=== PATIENT | female | born 1960 | race Caucasian/White ===

== ENCOUNTER 2018-08-01 10:57 | Inpatient (IN) | payer OTHER ==
[2018-08-01 11:34] VITALS: BMI 21.4
--- NOTE | 2018-08-01 15:12 | HP ---
COWS - Scale Resting Pulse: 1= [place] 81-100 Sweatin= Chills/Flushing Restless Observation: 3= Extraneous Movement Pupil Size: 1= Pupils >than Normal Bone or Joint Aches: 2= Severe Diffuse Aches Runny Nose/ Eye Tearin= Runny Nose/Eyes GI Upset > 30mins: 2= Nausea/Diarrhea Tremor Observation: 2= Slight Tremor Visible Yawning Observation: 2= >3x During Session Anxiety or Irritability: 2=Irritable/Anxious Goose Flesh Skin: 0=Smooth Skin COWS Score: 18 CIWA Score Nausea/Vomitin Muscle Tremors: 2 Anxiety: 2 Agitation: 2 Paroxysmal Sweats: 1-Minimal Palms Moist Orientation: 0-Oriented Tacttile Disturbances: 1-Very Mild Itch/Numbness Auditory Disturbances: 1-Very Mild Visual Disturbances: 0-None Headache: 2-Mild CIWA-Ar Total Score: 13 - Admission Criteria OASAS Guidelines: Admission for Medically Managed Detox: Requires at least one of the followin. CIWA greater than 12 2. Seizures within the past 24 hours 3. Delirium tremens within the past 24 hours 4. Hallucinations within the past 24 hours 5. Acute intervention needed for co occurring medical disorder 6. Acute intervention needed for co occurring psychiatric disorder 7. Severe withdrawal that cannot be handled at a lower level of care (continued vomiting, continued diarrhea, abnormal vital signs) requiring intravenous medication and/or fluids 8. Patient presents the following: CIWA greater than 12 Admission Criteria Met: Admission criteria met Admission ROS S - [facility] Chief Complaint: i need help to stop using heroin,alcohol,and cocaine Allergies/Adverse Reactions: Allergies Allergy/AdvReac Type Severity Reaction Status Date / Time No Known Allergies Allergy Verified 08/01/18 17:18 History of Present Illness: this 58 years old male with heroin,alcohol, and cocaine dependence,seeking detox ,withdrawal symptom,last detox in [facility] in 01/12, rehab in [facility] in 01/12 multiple admissions but keep relapsing hypertension hiv since 1997weight loss longest period of sobriety 5 years insomnia plan of rehab Exam Limitations: No Limitations - Ebola screening Have you traveled outside of the country in the last 21 days: No (N) Have you had contact with anyone from an Ebola affected area: No Have you been sick,other than usual withdrawal symptoms: No Do you have a fever: No - Review of Systems Constitutional: Chills, Diaphoresis, Loss of Appetite, Malaise, Night Sweats, Changes in sleep, Weakness, Unintentional Wgt. Loss EENT: reports: Tearing, Nose Congestion Respiratory: reports: Other (asthma) Cardiac: reports: No Symptoms Reported GI: reports: Diarrhea, Nausea, Vomiting, Abdominal cramping : reports: No Symptoms Reported Integumentary: reports: Dryness Neuro: reports: Headache, Tremors Endocrine: reports: No Symptoms Reported Hematology: reports: No Symptoms Reported, Other (hiv) Psychiatric: reports: No Sypmtoms Reported, Judgement Intact, Mood/Affect Appropiate, Orientated x3, other (insomnia) Other Systems: Reviewed and Negative Patient History - Patient Medical History Hx Anemia: No Hx Asthma: Yes (on albetrol inhaler,advair) Hx Chronic Obstructive Pulmonary Disease (COPD): No Hx Cancer: No Hx Cardiac Disorders: No Hx Congestive Heart Failure: No Hx Hypertension: Yes (on med) Hx Hypercholesterolemia: No Hx Pacemaker: No HX Cerebrovascular Accident: No Hx Seizures: No Hx Dementia: No Hx Diabetes: No Hx Gastrointestinal Disorders: No Hx Liver Disease: No Hx Genitourinary Disorders: No Hx Sexually Transmitted Disorders: No Hx Renal Disease (ESRD): No Hx Thyroid Disease: No Hx Human Immunodeficiency Virus (HIV): Yes (since 1997) Hx Hepatitis C: No Hx Depression: No Hx Suicide Attempt: No Hx Bipolar Disorder: No Hx Schizophrenia: No Other Medical History: insomnia,no suicidal,no homicidal - Patient Surgical History Hx Section: Yes (x2 last 1994) - PPD History Previous Implant?: Yes Documented Results: Negative w/o proof Implanted On Prior R Admission?: No PPD to be Administered?: Yes - Reproductive History Patient is a Female of Child Bearing Age (11 -55 yrs old): No Patient : No - Smoking Cessation Smoking history: Current every day smoker Have you smoked in the past 12 months: Yes Aproximately how many cigarettes per day: 10 Cigars Per Day: 0 Hx Chewing Tobacco Use: No Initiated information on smoking cessation: Yes 'Breaking Loose' booklet given: 08/01/18 - Substance & Tx. History Hx Alcohol Use: Yes Hx Substance Use: Yes Substance Use Type: Alcohol, Cocaine, Heroin Hx Substance Use Treatment: Yes ([facility] 01[facility],then [facility]hab [facility] 01/12) - Substances Abused Heroin Route: Injection Frequency: Daily Amount used: 8 bags Age of first use: 15 Date of Last Use: 08/01/18 Cocaine Route: Injection Frequency: Daily Amount used: 20$ Age of first use: 16 Date of Last Use: 08/01/18 alcohol Route: Oral Frequency: Daily Amount used: 10 of 24 ozs of beer Age of first use: 15 Date of Last Use: 07/31/18 Family Disease History - Family Disease History Family Disease History: [place]: Father () Admission Physical Exam [facility] - Vital Signs Vital Signs: Vital Signs - 24 hr 08/01/18 11:32 Temperature 97.0 F L Pulse Rate 91 H Respiratory 18 Rate Blood Pressure 163/87 - Physical General Appearance: Yes: Moderate Distress, Tremorous, Irritable, Sweating, Anxious HEENTM: Yes: Normal ENT Inspection, DAVID, Pharynx Normal, Other (no teeth no denture) Respiratory: Yes: Lungs Clear, Normal Breath Sounds, No Respiratory Distress Neck: Yes: Within Normal Limits, Supple, Trachea in good position Breast: Yes: Breast Exam Deferred Cardiology: Yes: Within Normal Limits, Regular Rhythm, Regular Rate, S1, S2 Abdominal: Yes: Within Normal Limits, Normal Bowel Sounds, Non Tender, Flat Genitourinary: Yes: Within Normal Limits Musculoskeletal: Yes: Back pain, Joint Stiffness, Muscle Pain Extremities: Yes: Within Normal Limits, Tremors Neurological: Yes: senior merchandiser II-XII NML intact, Fully Oriented, Alert, Motor Strength 5/5 Integumentary: Yes: Dry Lymphatic: Yes: Within Normal Limits - Diagnostic (1) Opioid dependence with withdrawal Current Visit: Yes Status: Acute (2) Alcohol dependence with uncomplicated withdrawal Current Visit: Yes Status: Acute (3) Cocaine dependence Current Visit: Yes Status: Acute (4) Essential hypertension Current Visit: Yes Status: Acute (5) Asthma Current Visit: Yes Status: Acute (6) Weight loss Current Visit: Yes Status: Acute (7) Dehydration Current Visit: Yes Status: Acute (8) Nicotine dependence Current Visit: Yes Status: Acute Cleared for Admission S - Detox or Rehab S Level of Care: Medically Managed Detox Regimen/Protocol: Methadone/Librium S Breath Alcohol Content Breath Alcohol Content: 0 Urine Pregancy Test - Result Urine Test Results: Negative- NO Line Present Urine Drug Screen - Results Drug Screen Negative: No Urine Drug Screen Results: NABIL-Cocaine, OPI-Opiates, FEN-Fentanyl
[2018-08-01] MEDS ORDERED: MAGNESIUM HYDROX 2400MG/30ML ORAL SUSPENSION 30 ML CUP PO PRN (15:33)
[2018-08-01] MEDS ORDERED: MAGNESIUM CITRATE 300 ML BOTTLE PO PRN (15:33)
[2018-08-01] MEDS ORDERED: chlordiazePOXIDE HCL 25 MG CAPSULE PO PRN (15:33)
[2018-08-01] MEDS ORDERED: P-EPHED 60MG/TRIPROLIDI 2.5MG TABLET PO PRN (15:33)
[2018-08-01] MEDS ORDERED: LOPERAMIDE HCL 2 MG CAPSULE PO PRN (15:33)
[2018-08-01] MEDS ORDERED: guaiFENesin/D-METHORPHAN HB 10 ML UNIT-DOSE CUPS PO PRN (15:33)
[2018-08-01] MEDS ORDERED: MENTHOL/PHENOL 1 EACH UD MM PRN (15:33)
[2018-08-01] MEDS ORDERED: MAG HYDROX/AL HYDROX/SIMETH 30 ML UNIT-DOSE CUP PO PRN (15:33)
[2018-08-01] MEDS ORDERED: METHADONE HCL 10 MG TABLET (FOR DETOX USE ONLY) PO ONE ×2 (15:33→23:00)
[2018-08-01] MEDS ORDERED: TRIMETHOBENZAMIDE HCL 200MG/2ML INJ IM PRN (15:39)
[2018-08-01] MEDS ORDERED: ALBUTEROL SO4 8 GM HFA INHALER IH PRN (17:58)
[2018-08-01] MEDS: chlordiazePOXIDE HCL 25 MG CAPSULE PO SCH ×2 (18:07→22:30)
[2018-08-01] MEDS: NICOTINE 21 MG/24 HOURS TOPICAL PATCH TD SCH (18:15)
[2018-08-01] MEDS: BUDESONIDE/FORMETEROL FUMARATE 160/4.5 mcg INHALER IH SCH (22:29)
[2018-08-01] MEDS: THIAMINE HCL 100 MG TABLET (FP) PO SCH (22:29)
[2018-08-01] MEDS: cloNIDine HCL 0.1 MG TABLET PO SCH (22:30)
[2018-08-01] MEDS: MELATONIN 5 MG TABLETS PO PRN (22:30)
[2018-08-02] MEDS: chlordiazePOXIDE HCL 25 MG CAPSULE PO SCH ×4 (05:42→22:01)
[2018-08-02] MEDS ORDERED: METHADONE HCL 10 MG TABLET (FOR DETOX USE ONLY) PO SCH (10:00)
[2018-08-02] MEDS: BUDESONIDE/FORMETEROL FUMARATE 160/4.5 mcg INHALER IH SCH ×2 (10:55→22:01)
[2018-08-02] MEDS: PRENATAL VITAMINS W/ FOLIC ACID TABLET (FP) PO SCH (10:56)
[2018-08-02] MEDS: NICOTINE 21 MG/24 HOURS TOPICAL PATCH TD SCH (10:58)
[2018-08-02] MEDS: cloNIDine HCL 0.1 MG TABLET PO SCH ×2 (10:58→22:02)
[2018-08-02 13:06] LABS: ALBUMIN 2.6 g/dl (3.4-5.0); ALK PHOS 129 U/L (45-117); ANION GAP 7 MMOL/L (8-16); BILIRUBIN,TOTAL 0.4 mg/dL (0.2-1); BLOOD UREA NITROGEN 14 mg/dL (7-18); CHLORIDE 107 mmol/L (98-107); CO2 26 mmol/L (21-32); CREATININE 0.9 mg/dL (0.55-1.3); GLUCOSE,RANDOM 133 mg/dL (74-106); POTASSIUM 3.9 mmol/L (3.5-5.1); SGOT/AST 39 U/L (15-37); SGPT/ALT 32 U/L (13-61); SODIUM 140 mmol/L (136-145); TOT PROT 7.2 g/dl (6.4-8.2)
[2018-08-02 13:08] LABS: HEMATOCRIT 37.1 % (32.4-45.2); HEMOGLOBIN 12.8 GM/dL (10.7-15.3); MCH 30.3 pg (25.7-33.7); MCHC 34.6 g/dl (32.0-36.0); MEAN CELL VOLUME 87.4 fl (80-96); PLATELET COUNT 216 K/MM3 (134-434); RBC 4.25 M/mm3 (3.60-5.2); WHITE BLOOD COUNT 4.2 K/mm3 (4.0-10.0)
--- NOTE | 2018-08-02 16:53 | PN ---
[facility] CIWA - CIWA Score Nausea/Vomitin Muscle Tremors: 4-Moderate,w/Arms Extend Anxiety: 4-Mod. Anxious/Guarded Agitation: 4-Moderately Restless Paroxysmal Sweats: 3 Orientation: 0-Oriented Tacttile Disturbances: 0-None Auditory Disturbances: 0-None Visual Disturbances: 0-None Headache: 0-None Present CIWA-Ar Total Score: 17 S COWS - Scale Resting Pulse: 1= [place] 81-100 Sweatin= Chills/Flushing Restless Observation: 3= Extraneous Movement Pupil Size: 1= Pupils >than Normal Bone or Joint Aches: 2= Severe Diffuse Aches Runny Nose/ Eye Tearin= Runny Nose/Eyes GI Upset > 30mins: 3= Vomiting/Diarrhea Tremor Observation of Outstretched Hands: 2= Slight Tremor Visible Yawning Observation: 1= 1-2x During Session Anxiety or Irritability: 2=Irritable/Anxious Goose Flesh Skin: 0=Smooth Skin COWS Score: 18 [facility] Progress Note (SOAP) Subjective: Back pain, sweating, tremor, chills, c/o intermittent numbness to top of feet and to toes Objective: 08/02/18 16:49 Last Vital Signs Temp Pulse Resp BP Pulse Ox 96.1 F L 87 16 144/73 08/02/18 15:23 08/02/18 15:23 08/02/18 15:23 08/02/18 15:23 Elevated b/p noted: denies h/o htn Laboratory Tests 08/02/18 08/02/18 08/02/18 07:40 07:40 07:40 WBC 4.2 RBC 4.25 Hgb 12.8 Hct 37.1 MCV 87.4 MCH 30.3 MCHC 34.6 RDW 15.0 Plt Count 216 MPV 9.0 Sodium 140 Potassium 3.9 Chloride 107 Carbon Dioxide 26 Anion Gap 7 L BUN 14 Creatinine 0.9 Creat Clearance w eGFR > 60 Random Glucose 133 H Calcium 8.0 L Total Bilirubin 0.4 AST 39 H ALT 32 Alkaline Phosphatase 129 H Total Protein 7.2 Albumin 2.6 L RPR Titer Nonreactive Labs reviewed: glucose 133 EKG shows prolonged QTc, ordered for repeat in AM Assessment: 08/02/18 16:51 Withdrawal symptoms Noted with elevated blood pressure, hyperglycemia and prolonged QTc on EKG Plan: Continue detox Encouraged PO water intake Vistaril prn for anxiety Hyperglycemia: repeat fasting glucose in AM Prolonged QTc on EKG: asymptomatic, repeat EKG in AM Elevated blood pressure: clonidine prn
--- NOTE | 2018-08-02 17:12 | EKG ---
Test Reason : Blood Pressure : / mmHG Vent. Rate : 085 BPM Atrial Rate : 085 BPM P-R Int : 130 ms QRS Dur : 096 ms QT Int : 394 ms P-R-T Axes : 043 069 088 degrees QTc Int : 468 ms SINUS RHYTHM WITH PREMATURE ATRIAL COMPLEXES WITH ABERRANT CONDUCTION VOLTAGE CRITERIA FOR LEFT VENTRICULAR HYPERTROPHY ABNORMAL ECG NO PREVIOUS ECGS AVAILABLE Confirmed by MD CATINA, TOLU ([id number]) on 08/02/2018 5:12:25 PM Referred By: Confirmed By:TOLU DOMINIQUE MD
[2018-08-02 18:05] LABS: SICKLE CELL SCREEN NEGATIVE (NEGATIVE)
[2018-08-02] MEDS: THIAMINE HCL 100 MG TABLET (FP) PO SCH (22:01)
[2018-08-02] MEDS: IBUPROFEN 400 MG TABLET (FP) PO PRN (23:05)
[2018-08-03] MEDS: hydrOXYzine PAMOATE 25 MG CAPSULE (FP) PO PRN (02:14)
[2018-08-03] MEDS: chlordiazePOXIDE HCL 25 MG CAPSULE PO SCH ×2 (06:07→10:07)
--- NOTE | 2018-08-03 09:45 | EKG ---
Test Reason : Blood Pressure : / mmHG Vent. Rate : 072 BPM Atrial Rate : 072 BPM P-R Int : 136 ms QRS Dur : 098 ms QT Int : 452 ms P-R-T Axes : 033 055 078 degrees QTc Int : 494 ms NORMAL SINUS RHYTHM VOLTAGE CRITERIA FOR LEFT VENTRICULAR HYPERTROPHY NONSPECIFIC T WAVE ABNORMALITY PROLONGED QT ABNORMAL ECG WHEN COMPARED WITH ECG OF 02-AUG-2018 07:17, T WAVE VARIATION Confirmed by IRENE DEL RIO, STARR ([id number]) on 08/03/2018 9:44:56 AM Referred By: Confirmed By:STARR BONILLA MD
[2018-08-03] MEDS: PRENATAL VITAMINS W/ FOLIC ACID TABLET (FP) PO SCH (10:07)
[2018-08-03] MEDS: cloNIDine HCL 0.1 MG TABLET PO SCH ×2 (10:07→22:19)
[2018-08-03] MEDS: METHADONE HCL 5 MG TABLET (FOR DETOX USE ONLY) PO SCH (10:08)
[2018-08-03] MEDS: BUDESONIDE/FORMETEROL FUMARATE 160/4.5 mcg INHALER IH SCH ×2 (10:08→22:18)
[2018-08-03] MEDS: NICOTINE 21 MG/24 HOURS TOPICAL PATCH TD SCH (10:10)
--- NOTE | 2018-08-03 11:59 | PN ---
[facility] CIWA - CIWA Score Nausea/Vomitin-Mild Nausea/No Vomiting Muscle Tremors: 3 Anxiety: 2 Agitation: 3 Paroxysmal Sweats: 1-Minimal Palms Moist Orientation: 1-Uncertain about Date Tacttile Disturbances: 0-None Auditory Disturbances: 1-Very Mild Visual Disturbances: 0-None Headache: 2-Mild CIWA-Ar Total Score: 14 [facility] COWS - Scale Resting Pulse: 0= IN 80 or Below Sweatin= Chills/Flushing Restless Observation: 0= Sits Still Pupil Size: 0= Normal to Room Light Bone or Joint Aches: 2= Severe Diffuse Aches Runny Nose/ Eye Tearin= Nasal Congestion GI Upset > 30mins: 2= Nausea/Diarrhea Tremor Observation of Outstretched Hands: 2= Slight Tremor Visible Yawning Observation: 2= >3x During Session Anxiety or Irritability: 2=Irritable/Anxious Goose Flesh Skin: 0=Smooth Skin COWS Score: 12 S Progress Note (SOAP) Subjective: body aches tremor sweat joints pain restlessness anxiety Objective: 08/03/18 11:57 Vital Signs Temperature 97.1 F L 08/03/18 09:26 Pulse Rate 77 08/03/18 09:26 Respiratory Rate 18 08/03/18 09:26 Blood Pressure 137/72 08/03/18 09:26 O2 Sat by Pulse Oximetry (%) Laboratory Last Values WBC 4.2 K/mm3 (4.0-10.0) 08/02/18 07:40 RBC 4.25 M/mm3 (3.60-5.2) 08/02/18 07:40 Hgb 12.8 GM/dL (10.7-15.3) 08/02/18 07:40 Hct 37.1 % (32.4-45.2) 08/02/18 07:40 MCV 87.4 fl (80-96) 08/02/18 07:40 MCH 30.3 pg (25.7-33.7) 08/02/18 07:40 MCHC 34.6 g/dl (32.0-36.0) 08/02/18 07:40 RDW 15.0 % (11.6-15.6) 08/02/18 07:40 Plt Count 216 K/MM3 (134-434) 08/02/18 07:40 MPV 9.0 fl (7.5-11.1) 08/02/18 07:40 Sickle Cell Screen Negative (NEGATIVE) 08/02/18 07:40 Sodium 140 mmol/L (136-145) 08/02/18 07:40 Potassium 3.9 mmol/L (3.5-5.1) 08/02/18 07:40 Chloride 107 mmol/L (98-107) 08/02/18 07:40 Carbon Dioxide 26 mmol/L (21-32) 08/02/18 07:40 Anion Gap 7 MMOL/L (8-16) L 08/02/18 07:40 BUN 14 mg/dL (7-18) 08/02/18 07:40 Creatinine 0.9 mg/dL (0.55-1.3) 08/02/18 07:40 Creat Clearance w eGFR > 60 (>60) 08/02/18 07:40 Random Glucose 133 mg/dL (74-106) H 08/02/18 07:40 Calcium 8.0 mg/dL (8.5-10.1) L 08/02/18 07:40 Total Bilirubin 0.4 mg/dL (0.2-1) 08/02/18 07:40 AST 39 U/L (15-37) H 08/02/18 07:40 ALT 32 U/L (13-61) 08/02/18 07:40 Alkaline Phosphatase 129 U/L (45-117) H 08/02/18 07:40 Total Protein 7.2 g/dl (6.4-8.2) 08/02/18 07:40 Albumin 2.6 g/dl (3.4-5.0) L 08/02/18 07:40 RPR Titer Nonreactive (NONREACTIVE) 08/02/18 07:40 lab noted low ca++ Assessment: 08/03/18 11:58 withdrawal sx hypocalcemia Plan: continue detox oscal
[2018-08-03] MEDS: CALCIUM 250MG/VIT-D 125 UNITS 1 COMBO TABLET PO SCH ×2 (14:31→22:19)
[2018-08-03] MEDS: chlordiazePOXIDE 5 MG CAPSULE PO SCH ×2 (17:38→22:19)
[2018-08-03] MEDS: THIAMINE HCL 100 MG TABLET (FP) PO SCH (22:19)
[2018-08-03] MEDS: MELATONIN 5 MG TABLETS PO PRN (22:21)
[2018-08-04] MEDS: chlordiazePOXIDE 5 MG CAPSULE PO SCH ×2 (05:53→10:52)
[2018-08-04] MEDS: IBUPROFEN 400 MG TABLET (FP) PO PRN ×2 (05:55→14:50)
[2018-08-04] MEDS: BUDESONIDE/FORMETEROL FUMARATE 160/4.5 mcg INHALER IH SCH ×2 (10:49→22:19)
[2018-08-04] MEDS: CALCIUM 250MG/VIT-D 125 UNITS 1 COMBO TABLET PO SCH ×2 (10:49→22:19)
[2018-08-04] MEDS: PRENATAL VITAMINS W/ FOLIC ACID TABLET (FP) PO SCH (10:50)
[2018-08-04] MEDS: NICOTINE 21 MG/24 HOURS TOPICAL PATCH TD SCH (10:50)
[2018-08-04] MEDS: cloNIDine HCL 0.1 MG TABLET PO SCH ×2 (10:51→22:19)
[2018-08-04] MEDS: METHADONE HCL 5 MG TABLET (FOR DETOX USE ONLY) PO SCH (10:51)
--- NOTE | 2018-08-04 12:36 | PN ---
[facility] Progress Note (SOAP) Subjective: tremor sweat restlessness anxiety body aches joints pain muscle cramping Objective: 08/04/18 12:36 Vital Signs Temperature 98.1 F 08/04/18 09:23 Pulse Rate 77 08/04/18 09:23 Respiratory Rate 18 08/04/18 09:23 Blood Pressure 131/62 08/04/18 09:23 O2 Sat by Pulse Oximetry (%) Laboratory Last Values WBC 4.2 K/mm3 (4.0-10.0) 08/02/18 07:40 RBC 4.25 M/mm3 (3.60-5.2) 08/02/18 07:40 Hgb 12.8 GM/dL (10.7-15.3) 08/02/18 07:40 Hct 37.1 % (32.4-45.2) 08/02/18 07:40 MCV 87.4 fl (80-96) 08/02/18 07:40 MCH 30.3 pg (25.7-33.7) 08/02/18 07:40 MCHC 34.6 g/dl (32.0-36.0) 08/02/18 07:40 RDW 15.0 % (11.6-15.6) 08/02/18 07:40 Plt Count 216 K/MM3 (134-434) 08/02/18 07:40 MPV 9.0 fl (7.5-11.1) 08/02/18 07:40 Sickle Cell Screen Negative (NEGATIVE) 08/02/18 07:40 Sodium 140 mmol/L (136-145) 08/02/18 07:40 Potassium 3.9 mmol/L (3.5-5.1) 08/02/18 07:40 Chloride 107 mmol/L (98-107) 08/02/18 07:40 Carbon Dioxide 26 mmol/L (21-32) 08/02/18 07:40 Anion Gap 7 MMOL/L (8-16) L 08/02/18 07:40 BUN 14 mg/dL (7-18) 08/02/18 07:40 Creatinine 0.9 mg/dL (0.55-1.3) 08/02/18 07:40 Creat Clearance w eGFR > 60 (>60) 08/02/18 07:40 Random Glucose 133 mg/dL (74-106) H 08/02/18 07:40 Calcium 8.0 mg/dL (8.5-10.1) L 08/02/18 07:40 Total Bilirubin 0.4 mg/dL (0.2-1) 08/02/18 07:40 AST 39 U/L (15-37) H 08/02/18 07:40 ALT 32 U/L (13-61) 08/02/18 07:40 Alkaline Phosphatase 129 U/L (45-117) H 08/02/18 07:40 Total Protein 7.2 g/dl (6.4-8.2) 08/02/18 07:40 Albumin 2.6 g/dl (3.4-5.0) L 08/02/18 07:40 RPR Titer Nonreactive (NONREACTIVE) 08/02/18 07:40 lab noted Assessment: 08/04/18 12:37 withdrawal sx Plan: continue detox
[2018-08-04] MEDS: hydrOXYzine PAMOATE 25 MG CAPSULE (FP) PO PRN (14:50)
[2018-08-04] MEDS: chlordiazePOXIDE HCL 10 MG CAPSULE PO SCH ×2 (17:16→22:19)
[2018-08-04] MEDS: MELATONIN 5 MG TABLETS PO PRN (22:19)
[2018-08-04] MEDS: THIAMINE HCL 100 MG TABLET (FP) PO SCH (22:19)
[2018-08-05] MEDS: IBUPROFEN 400 MG TABLET (FP) PO PRN ×2 (02:17→17:16)
[2018-08-05] MEDS: ACETAMINOPHEN 325 MG TABLET (FP) PO PRN ×2 (05:40→14:28)
[2018-08-05] MEDS: chlordiazePOXIDE HCL 10 MG CAPSULE PO SCH ×2 (05:40→10:39)
[2018-08-05] MEDS ORDERED: METHADONE HCL 10 MG TABLET (FOR DETOX USE ONLY) PO SCH (10:00)
[2018-08-05] MEDS: CALCIUM 250MG/VIT-D 125 UNITS 1 COMBO TABLET PO SCH ×2 (10:39→21:19)
[2018-08-05] MEDS: PRENATAL VITAMINS W/ FOLIC ACID TABLET (FP) PO SCH (10:39)
[2018-08-05] MEDS: BUDESONIDE/FORMETEROL FUMARATE 160/4.5 mcg INHALER IH SCH ×2 (10:39→21:19)
[2018-08-05] MEDS: NICOTINE 21 MG/24 HOURS TOPICAL PATCH TD SCH (10:39)
[2018-08-05] MEDS: cloNIDine HCL 0.1 MG TABLET PO SCH ×2 (10:40→21:19)
--- NOTE | 2018-08-05 14:53 | PN ---
S Progress Note (SOAP) Subjective: feeling better report taking wellbutrim 75 mg po daily last filled 30 days on patient had history of depression and taking psychotropic medication psychiatric referral criteria met patient requests vistrail hs for better sleeping Objective: 08/05/18 14:55 Vital Signs Temperature 98.2 F 08/05/18 13:16 Pulse Rate 81 08/05/18 13:16 Respiratory Rate 16 08/05/18 13:16 Blood Pressure 127/71 08/05/18 13:16 O2 Sat by Pulse Oximetry (%) Laboratory Last Values WBC 4.2 K/mm3 (4.0-10.0) 08/02/18 07:40 RBC 4.25 M/mm3 (3.60-5.2) 08/02/18 07:40 Hgb 12.8 GM/dL (10.7-15.3) 08/02/18 07:40 Hct 37.1 % (32.4-45.2) 08/02/18 07:40 MCV 87.4 fl (80-96) 08/02/18 07:40 MCH 30.3 pg (25.7-33.7) 08/02/18 07:40 MCHC 34.6 g/dl (32.0-36.0) 08/02/18 07:40 RDW 15.0 % (11.6-15.6) 08/02/18 07:40 Plt Count 216 K/MM3 (134-434) 08/02/18 07:40 MPV 9.0 fl (7.5-11.1) 08/02/18 07:40 Sickle Cell Screen Negative (NEGATIVE) 08/02/18 07:40 Sodium 140 mmol/L (136-145) 08/02/18 07:40 Potassium 3.9 mmol/L (3.5-5.1) 08/02/18 07:40 Chloride 107 mmol/L (98-107) 08/02/18 07:40 Carbon Dioxide 26 mmol/L (21-32) 08/02/18 07:40 Anion Gap 7 MMOL/L (8-16) L 08/02/18 07:40 BUN 14 mg/dL (7-18) 08/02/18 07:40 Creatinine 0.9 mg/dL (0.55-1.3) 08/02/18 07:40 Creat Clearance w eGFR > 60 (>60) 08/02/18 07:40 Random Glucose 133 mg/dL (74-106) H 08/02/18 07:40 Calcium 8.0 mg/dL (8.5-10.1) L 08/02/18 07:40 Total Bilirubin 0.4 mg/dL (0.2-1) 08/02/18 07:40 AST 39 U/L (15-37) H 08/02/18 07:40 ALT 32 U/L (13-61) 08/02/18 07:40 Alkaline Phosphatase 129 U/L (45-117) H 08/02/18 07:40 Total Protein 7.2 g/dl (6.4-8.2) 08/02/18 07:40 Albumin 2.6 g/dl (3.4-5.0) L 08/02/18 07:40 RPR Titer Nonreactive (NONREACTIVE) 08/02/18 07:40 lab noted low ca++ Assessment: 08/05/18 14:56 mild withdrawal sx low ca++ Plan: continue detox
[2018-08-05] MEDS: THIAMINE HCL 100 MG TABLET (FP) PO SCH (21:19)
[2018-08-05] MEDS: MELATONIN 5 MG TABLETS PO PRN (21:20)
[2018-08-05] MEDS ORDERED: hydrOXYzine PAMOATE 25 MG CAPSULE (FP) PO ONE (22:00)
[2018-08-06] MEDS: IBUPROFEN 400 MG TABLET (FP) PO PRN (01:01)
[2018-08-06] MEDS ORDERED: METHADONE HCL 5 MG TABLET (FOR DETOX USE ONLY) PO SCH (06:00)
[2018-08-06 06:35] VITALS: BP 151/75; PULSE 76; TEMP 96.9
--- NOTE | 2018-08-06 10:02 | DS ---
[facility] Detox Discharge Summary Admission Date: 08/01/18 Discharge Date: 08/06/18 - History Present History: Alcohol Dependence, Opioid Dependence Additional Comments: 58 years old female admitted on 08/01/18 for alcohol and opiate withdrawal stabilization completed detox regimen alert no acute distress aftercare Dr Smyth Pertinent Past History: patient agrees to follow up with her case hardener at [facility] - Physical Exam Results Vital Signs: Vital Signs Temperature 96.9 F L 08/06/18 06:34 Pulse Rate 76 08/06/18 06:34 Respiratory Rate 18 08/06/18 06:34 Blood Pressure 151/75 08/06/18 06:34 O2 Sat by Pulse Oximetry (%) Pertinent Admission Physical Exam Findings: alcohol and opiate withdrawal sx Laboratory Last Values WBC 4.2 K/mm3 (4.0-10.0) 08/02/18 07:40 RBC 4.25 M/mm3 (3.60-5.2) 08/02/18 07:40 Hgb 12.8 GM/dL (10.7-15.3) 08/02/18 07:40 Hct 37.1 % (32.4-45.2) 08/02/18 07:40 MCV 87.4 fl (80-96) 08/02/18 07:40 MCH 30.3 pg (25.7-33.7) 08/02/18 07:40 MCHC 34.6 g/dl (32.0-36.0) 08/02/18 07:40 RDW 15.0 % (11.6-15.6) 08/02/18 07:40 Plt Count 216 K/MM3 (134-434) 08/02/18 07:40 MPV 9.0 fl (7.5-11.1) 08/02/18 07:40 Sickle Cell Screen Negative (NEGATIVE) 08/02/18 07:40 Sodium 140 mmol/L (136-145) 08/02/18 07:40 Potassium 3.9 mmol/L (3.5-5.1) 08/02/18 07:40 Chloride 107 mmol/L (98-107) 08/02/18 07:40 Carbon Dioxide 26 mmol/L (21-32) 08/02/18 07:40 Anion Gap 7 MMOL/L (8-16) L 08/02/18 07:40 BUN 14 mg/dL (7-18) 08/02/18 07:40 Creatinine 0.9 mg/dL (0.55-1.3) 08/02/18 07:40 Creat Clearance w eGFR > 60 (>60) 08/02/18 07:40 Random Glucose 133 mg/dL (74-106) H 08/02/18 07:40 Calcium 8.0 mg/dL (8.5-10.1) L 08/02/18 07:40 Total Bilirubin 0.4 mg/dL (0.2-1) 08/02/18 07:40 AST 39 U/L (15-37) H 08/02/18 07:40 ALT 32 U/L (13-61) 08/02/18 07:40 Alkaline Phosphatase 129 U/L (45-117) H 08/02/18 07:40 Total Protein 7.2 g/dl (6.4-8.2) 08/02/18 07:40 Albumin 2.6 g/dl (3.4-5.0) L 08/02/18 07:40 RPR Titer Nonreactive (NONREACTIVE) 08/02/18 07:40 lab noted - Treatment Hospital Course: Detox Protocol Followed, Detoxed Safely, Responded well, Discharged Condition Good, Rehab Referral Accepted Patient has Accepted a Rehab Referral to: Dr. Smyth - Medication Discharge Medications: Ambulatory Orders Albuterol Sulfate Inhaler - [Ventolin HFA Inhaler -] 2 inh PO Q4H PRN 08/05/18 Albuterol Sulfate Inhaler - [Ventolin HFA Inhaler -] 2 puff IH Q4H PRN #1 inhaler 08/05/18 Amlodipine Besylate/Benazepril [Lotrel 10-20 mg Capsule] 1 cap PO DAILY Budesonide/Formeterol Fumarate [SYMBICORT 160/4.5mcg -] 2 puff IH BID #1 inhaler 08/05/18 - Diagnosis (1) Alcohol dependence with uncomplicated withdrawal Status: Acute (2) Essential hypertension Status: Chronic (3) Asthma Status: Chronic Qualifiers: Asthma severity: mild Asthma persistence: intermittent Asthma complication type: with status asthmaticus Qualified Code(s): J45.22 - Mild intermittent asthma with status asthmaticus (4) Weight loss Status: Acute (5) Nicotine dependence Status: Acute Qualifiers: Nicotine product type: cigarettes Substance use status: in withdrawal Qualified Code(s): F17.213 - Nicotine dependence, cigarettes, with withdrawal - AMA Did Patient Leave Against Medical Advice: No
== END 2018-08-06 09:30 | disposition home or self-care (01) | DRG 773 ==
LOC: YASAS 10:57 → Y3N 15:42
PROC: HZ2ZZZZ Detoxification Services for Substance Abuse Treatment (ICD-10-PCS; principal; 2018-08-01)
DX: F11.23 Opioid dependence with withdrawal (principal); F10.230 Alcohol dependence with withdrawal, uncomplicated; F14.20 Cocaine dependence, uncomplicated; F17.213 Nicotine dependence, cigarettes, with withdrawal; I10 Essential (primary) hypertension; J45.22 Mild intermittent asthma with status asthmaticus; E83.51 Hypocalcemia; E86.0 Dehydration; I45.81 Long QT syndrome; Z21 Asymptomatic human immunodeficiency virus [HIV] infection status
CPT/HCPCS: 36415; 80053; 85027; 85660; 86593; 93005; 93010; J0735

== ENCOUNTER 2020-02-09 14:39 | Inpatient (IN) | payer OTHER ==
[2020-02-09] MEDS ORDERED: chlordiazePOXIDE HCL 25 MG CAPSULE PO ONE (15:40)
--- NOTE | 2020-02-09 15:52 | PDOC ---
Documentation entered by January Corrales SCRIBE, acting as scribe for Yadi Shah MD. Yadi Shah MD: This documentation has been prepared by the Savanna marte Adrianna, SCRIBE, under my direction and personally reviewed by me in its entirety. I confirm that the documentation accurately reflects all work, treatment, procedures, and medical decision making performed by me. Attending Attestation - Resident Resident Name: DeidreFe - ED Attending Attestation I have performed the following: I have examined & evaluated the patient, The case was reviewed & discussed with the resident, I agree w/resident's findings & plan - HPI HPI: 59y F with PMH of HIV (states she is compliant with HAART), Cocaine dependence, Heroin dependence (IV use), Alcohol dependence presenting to the ER today from [facility] for evaluation of murmur. Last use of alcohol, cocaine and heroin was yesterday. Pt does not know about having a murmur in the past. Pt wanted to go to detox today to stop using. She endorses bilateral leg swelling which has been going on for the past few weeks but says it has been improving. She notices some rash on the lower extremities. She is endorsing nausea and diarrhea (nbnb). Denies abdominal pain, fever, chest pain, sob, back pain, headache, neck stiffness, cough. 02/09/20 19:51 - Physicial Exam PE: Agree with the resident's HPI and PE as documented in the electronic medical record. NAD, +anxious appearing, uncooperative, EOMI, PERRL, nl conjunctiva, anicteric; neck supple. lungs clear, +holosystolic murmur, abdomen soft nontender. No rebound, no guarding. Back nontender. KHAN x4, no focal neuro deficits. Stable gait. +bilateral LE edema. normal color for ethnicity, WWP - Medical Decision Making 02/09/20 19:51 Vital Signs Temp Pulse Resp BP Pulse Ox 97.9 F 82 16 130/62 99 02/09/20 17:37 02/09/20 17:37 02/09/20 17:37 02/09/20 17:37 02/09/20 17:37 vitals reviewed, wnl initially wanted to AMA refusing care/labs, eval. initially fixated on detox and her clothes at [facility] after discussion, pt had refused AMA paperwork; security called due to patient poor cooperation. then allowed to be cared for and eval no systemic sx here from [facility], detox librium here no methadone hydration PO intake labs and lytes with mild aissatou, hyper K and will treat. shift. anemia, likely related to cr function. inpatient echo to eval for new murmur, EF and eval for vegetation no fever, hold off abx for now. unlikely endocarditis at this time admitting to overnight hospitalist, Dr Garcia. medical management and monitoring. 02/09/20 19:53 02/09/20 19:54 Heart Score/ECG Review #1 ECG reviewed & interpreted by me at: 15:55 General ECG Interpretation: Sinus Rhythm, Normal Rate, Normal Intervals 02/09/20 15:51 EKG normal sinus rhythm 84 bpm, no interval abnormalities, narrow QRS, ST and T wave segments and morphology normal Discharge - Discharge Information Problems reviewed: Yes Clinical Impression/Diagnosis: AISSATOU (acute kidney injury), Hyperkalemia, Alcohol abuse Condition: Fair - Admission Yes - Follow up/Referral - Patient Discharge Instructions - Post Discharge Activity
[2020-02-09] MEDS ORDERED: chlordiazePOXIDE HCL 25 MG CAPSULE ONE (15:59)
[2020-02-09 16:12] LABS: BASO % 0.5 % (0-2.0); EOS % 2.4 % (0-4.5); HEMATOCRIT 27.7 % (32.4-45.2); LYMPH % 20.4 % (8-40); MCHC 32.4 g/dl (32.0-36.0); MEAN CELL VOLUME 80.3 fl (80-96); MEAN PLT VOLUME 8.4 fl (7.5-11.1); MONO % 10.6 % (3.8-10.2); NEUT % 66.1 % (42.8-82.8); PLATELET COUNT 186 K/MM3 (134-434); RBC 3.45 M/mm3 (3.60-5.2); RDW 18.3 % (11.6-15.6); WHITE BLOOD COUNT 6.6 K/mm3 (4.0-10.0)
[2020-02-09 16:23] LABS: INR 1.06 (0.83-1.09); PROTHROMBIN TIME (PATIENT) 12.5 SEC (9.7-13.0)
[2020-02-09 16:26] LABS: ACTIVATED PTT 41.5 SECONDS (25.2-36.5)
[2020-02-09 16:38] LABS: ALBUMIN 2.4 g/dl (3.4-5.0); ALK PHOS 160 U/L (45-117); ANION GAP 6 MMOL/L (8-16); BILIRUBIN,TOTAL 0.9 mg/dL (0.2-1); BLOOD UREA NITROGEN 26.2 mg/dL (7-18); CHLORIDE 108 mmol/L (98-107); CO2 20 mmol/L (21-32); CREATININE 1.6 mg/dL (0.55-1.3); GLUCOSE,RANDOM 89 mg/dL (74-106); POTASSIUM 5.6 mmol/L (3.5-5.1); SGOT/AST 62 U/L (15-37); SGPT/ALT 24 U/L (13-61); SODIUM 135 mmol/L (136-145); TOT PROT 9.4 g/dl (6.4-8.2)
[2020-02-09 17:24] LABS: EPI CELLS 20 /uL (0-25.1); HYALINE CASTS 1 /uL (0-3.1); PH,URINE 7.5 (5.0-8.0); URINE APPEARANCE CLEAR; URINE BACTERIA 382 /uL (0-1359); URINE BILIRUBIN NEGATIVE (NEGATIVE); URINE COLOR YELLOW; URINE GLUCOSE (UA) NEGATIVE (NEGATIVE); URINE KETONE NEGATIVE (NEGATIVE); URINE LEUK ESTERASE 2+ (NEGATIVE); URINE NITRITE NEGATIVE (NEGATIVE); URINE PROTEIN NEGATIVE (NEGATIVE); URINE RBC 12 /uL (0-23.9); URINE WBC 60 /uL (0-25.8)
[2020-02-09 17:33] LABS: CALCIUM 7.9 mg/dL (8.5-10.1); CREATININE 1.6 mg/dL (0.55-1.3); POTASSIUM 5.3 mmol/L (3.5-5.1)
--- NOTE | 2020-02-09 17:36 | PDOC ---
History of Present Illness - General Stated Complaint: Edema Time Seen by Provider: 02/09/20 15:12 History Source: Patient Exam Limitations: No Limitations - History of Present Illness Initial Comments: 02/09/20 17:29 59y F with PMH of HIV (states she is compliant with HAART), Cocaine dependence, Heroin dependence (IV use), Alcohol dependence presenting to the ER today from [facility] for evaluation of murmur. Last use of alcohol, cocaine and heroin was yesterday. Pt does not know about having a murmur in the past. Pt wanted to go to detox today to stop using. She endorses bilateral leg swelling which has been going on for the past few weeks but says it has been improving. She notices some rash on the lower extremities. She is endorsing nausea and diarrhea (nbnb). Denies abdominal pain, fever, chest pain, sob, back pain, headache, neck stiffness, cough. Past History - Medical History Allergies/Adverse Reactions: Allergies Allergy/AdvReac Type Severity Reaction Status Date / Time No Known Allergies Allergy Verified 08/01/18 17:18 Home Medications: Ambulatory Orders Albuterol Sulfate Inhaler - [Ventolin HFA Inhaler -] 2 inh PO Q4H PRN 08/05/18 Albuterol Sulfate Inhaler - [Ventolin HFA Inhaler -] 2 puff IH Q4H PRN #1 inhaler 08/05/18 Amlodipine Besylate/Benazepril [Lotrel 10-20 mg Capsule] 1 cap PO DAILY 08/05/18 Budesonide/Formeterol Fumarate [SYMBICORT 160/4.5mcg -] 2 puff IH BID #1 inhaler 08/05/18 Anemia: No Asthma: Yes (on albetrol inhaler,advair) Cancer: No Cardiac Disorders: No CVA: No COPD: No CHF: No Dementia: No Diabetes: No GI Disorders: No Disorders: No HTN: Yes (on med) Hypercholesterolemia: No Kidney Stones: No Liver Disease: No Seizures: No Thyroid Disease: No - Surgical History Abdominal Surgery: No Appendectomy: No Cardiac Surgery: No Cholecystectomy: No Lung Surgery: No Neurologic Surgery: No Orthopedic Surgery: No - Psycho-Social/Smoking History Smoking History: Current every day smoker Have you smoked in the past 12 months: Yes Number of Cigarettes Smoked Daily: 20 Cigars Per Day: 0 Information on smoking cessation initiated: No 'Breaking Loose' booklet given: 02/09/20 - Substance Abuse Hx (Audit-C & DAST Scrn) How often the patient has a drink containing alcohol: 4 0r more times/wk Score: In Men: 4 or > Positive; In Women: 3 or > Positive: 4 Screen Result (Pos requires Nsg. Audit-10AR): Positive In the last yr the pt used illegal drug/Rx for NonMed reason: No Score: Yes response is considered Positive: 0 Screen Result (Positive result requires Nsg. DAST-10): Negative Review of Systems - Review of Systems Constitutional: No: Symptoms Reported HEENTM: No: Symptoms Reported Respiratory: No: Symptoms reported Cardiac (ROS): No: Symptoms Reported ABD/GI: Yes: See HPI : No: Symptoms Reported Musculoskeletal: Yes: See HPI Integumentary: Yes: See HPI Neurological: No: Symptoms reported *Physical Exam - Vital Signs Last Vital Signs Temp Pulse Resp BP Pulse Ox 98.1 F 89 17 132/65 98 02/09/20 14:41 02/09/20 14:41 02/09/20 14:41 02/09/20 14:41 02/09/20 14:41 - Physical Exam General Appearance: Yes: Appropriately Dressed, Thin. No: Apparent Distress HEENT: positive: EOMI, DAVID. negative: Scleral Icterus (R), Scleral Icterus (L) Neck: positive: Trachea midline, Supple. negative: Lymphadenopathy (R), Lymphadenopathy (L) Respiratory/Chest: positive: Lungs Clear, Normal Breath Sounds. negative: Rapid RR, Paradoxal Breathing, Crackles, Rales, Rhonchi, Stridor, Wheezing Cardiovascular: positive: Regular Rhythm, Regular Rate, S1, S2, Murmur, Systolic Murmur. negative: Edema, JVD Vascular Pulses: Dorsalis-Pedis (R): 2+, Doralis-Pedis (L): 2+ Gastrointestinal/Abdominal: positive: Normal Bowel Sounds, Soft, Protuberent, Distended. negative: Guarding, Rebound, Tenderness, Hernia Musculoskeletal: negative: CVA Tenderness, Decreased Range of Motion, Vertebral Tenderness Extremity: positive: Normal Capillary Refill, Pedal Edema (up to midcalf bilaterally 2+. ) Integumentary: positive: Normal Color, Dry, Warm, Other (small punctate lesions non blancing on lower extremties near swollen areas, not numerous, scattered. ). negative: Pale, Cold, Ecchymosis, Bruising Neurologic: positive: director operating II-XII NML intact, Fully Oriented, Alert, Normal Mood/Affect, Normal Response, Motor Strength 5/5, Other (ambulatory with normal gait) ED Treatment Course - LABORATORY CBC & Chemistry Diagram: 02/09/20 15:50 02/09/20 16:55 - ADDITIONAL ORDERS Additional order review: Laboratory Results 02/09/20 02/09/20 02/09/20 16:25 15:50 15:50 PT with INR INR PTT (Actin FS) Sodium Potassium Chloride Carbon Dioxide Anion Gap BUN Creatinine Est GFR (CKD-EPI)AfAm Est GFR (CKD-EPI)NonAf Random Glucose Lactic Acid 1.0 Calcium Total Bilirubin AST ALT Alkaline Phosphatase Ammonia Creatine Kinase Creatine Kinase Index CK-MB (CK-2) Troponin I Total Protein Albumin Urine Color Yellow Urine Appearance Clear Urine pH 7.5 Ur Specific [place] 1.010 Urine Protein Negative Urine Glucose (UA) Negative Urine Ketones Negative Urine Blood Negative Urine Nitrite Negative Urine Bilirubin Negative Urine Urobilinogen 1.0 Ur Leukocyte Esterase 2+ H Urine WBC (Auto) 60 Urine RBC (Auto) 12 Urine Casts (Auto) 1 U Epithel Cells (Auto) 20 Urine Bacteria (Auto) 382 Blood Type O POSITIVE Antibody Screen Negative 02/09/20 02/09/20 02/09/20 15:50 15:50 15:50 PT with INR INR PTT (Actin FS) Sodium 135 L Potassium 5.6 H Chloride 108 H Carbon Dioxide 20 L Anion Gap 6 L BUN 26.2 H Creatinine 1.6 H Est GFR (CKD-EPI)AfAm 40.74 Est GFR (CKD-EPI)NonAf 35.15 Random Glucose 89 Lactic Acid Calcium 8.0 L Total Bilirubin 0.9 AST 62 H ALT 24 Alkaline Phosphatase 160 H Ammonia 41.50 H Creatine Kinase 221 H Creatine Kinase Index 1.4 CK-MB (CK-2) 3.3 Troponin I < 0.02 Total Protein 9.4 H Albumin 2.4 L Urine Color Urine Appearance Urine pH Ur Specific [place] Urine Protein Urine Glucose (UA) Urine Ketones Urine Blood Urine Nitrite Urine Bilirubin Urine Urobilinogen Ur Leukocyte Esterase Urine WBC (Auto) Urine RBC (Auto) Urine Casts (Auto) U Epithel Cells (Auto) Urine Bacteria (Auto) Blood Type O POSITIVE Antibody Screen Negative 02/09/20 15:50 PT with INR 12.50 INR 1.06 PTT (Actin FS) 41.5 H Sodium Potassium Chloride Carbon Dioxide Anion Gap BUN Creatinine Est GFR (CKD-EPI)AfAm Est GFR (CKD-EPI)NonAf Random Glucose Lactic Acid Calcium Total Bilirubin AST ALT Alkaline Phosphatase Ammonia Creatine Kinase Creatine Kinase Index CK-MB (CK-2) Troponin I Total Protein Albumin Urine Color Urine Appearance Urine pH Ur Specific [place] Urine Protein Urine Glucose (UA) Urine Ketones Urine Blood Urine Nitrite Urine Bilirubin Urine Urobilinogen Ur Leukocyte Esterase Urine WBC (Auto) Urine RBC (Auto) Urine Casts (Auto) U Epithel Cells (Auto) Urine Bacteria (Auto) Blood Type Antibody Screen 02/09/20 15:50 RBC 3.45 L MCV 80.3 MCHC 32.4 RDW 18.3 H MPV 8.4 Neutrophils % 66.1 Lymphocytes % 20.4 Monocytes % 10.6 H Eosinophils % 2.4 Basophils % 0.5 - RADIOLOGY Radiology Studies Ordered: Category Date Time Status CHEST PA & LAT [RAD] Stat Radiology 02/09/20 15:39 Taken DUPLEX VASCUL US-2LEGS [US] Stat Ultrasound 02/09/20 15:39 Taken - Medications Given in the ED: ED Medications Discontinued Medications Generic Name Dose Route Start Last Admin Trade Name Freq PRN Reason Stop Dose Admin Chlordiazepoxide HCl 25 mg 02/09/20 15:40 02/09/20 16:05 Librium - PO 02/09/20 15:41 25 mg ONCE ONE Administration Medical Decision Making - Medical Decision Making 02/09/20 20:29 59y F with pmh of hiv, cocaine use, heroin use, alcohol use, ivdu preenting [facility]ur. pt interested in detox. vitals wnl pe notable for distended abdomen no fluid wave, not tender. no vertebral tenderness, no neurological deficits. lungs cta. systolic murmur heard. ddx includes endocarditis, septicemia, dvt, aortic valve stenosis, ecg negative for ischemia cxr does not show acute pathology. labs show anemia, no leukocytosis. mild aissatou, hyperkalema although slighly hemolized (will treat in light of aissatou). given librium for withdrawals. willl admit for aissatou, evaluation of murmur, withdrawals. IVF. UA has epithelial cells. pt does not have symptoms, will defer treatment at this time. dopplers negative for dvt. she has not had methadone before. 02/09/20 20:32 Discharge - Discharge Information Problems reviewed: Yes Clinical Impression/Diagnosis: AISSATOU (acute kidney injury), Hyperkalemia, Alcohol abuse Condition: Fair - Admission Yes - Follow up/Referral - Patient Discharge Instructions - Post Discharge Activity
[2020-02-09] MEDS ORDERED: DEXTROSE 50%-WATER - 25 GM/50 ML VIAL IVPUSH ONE (17:52)
[2020-02-09] MEDS ORDERED: INSULIN REGULAR HUMAN 100 UNITS/ML *VIAL IVPUSH ONE (17:52)
[2020-02-09] MEDS ORDERED: CALCIUM GLUCONATE 10% - 1,000 MG/10 ML VIAL IVPUSH ONE (17:53)
[2020-02-09] MEDS ORDERED: CALCIUM GLUCONATE 10% - 1,000 MG/10 ML VIAL ONE (18:00)
[2020-02-09] MEDS ORDERED: DEXTROSE 50%-WATER - 25 GM/50 ML VIAL ONE (18:00)
[2020-02-09] MEDS ORDERED: LACTATED RINGERS SOLUTION 1000 ML INFUS.BAG IV ONE (18:02)
--- NOTE | 2020-02-09 19:27 | PN ---
Teaching Attending Note Name of Resident: Hayley Shaw ATTENDING PHYSICIAN STATEMENT I saw and evaluated the patient. I reviewed the resident's note and discussed the case with the resident. I agree with the resident's findings and plan as documented. SUBJECTIVE: Patient is a 59 year lf woman with a PMH of Asthma, HTN, C-secton (x2), Andres ysubstance abuse (Cocaine, IV Heroin, Marijuana, Alcohol), HIV disease (on HAART) and Tobacco use who presents to the ER from [facility] for evaluation of a murmur. Last use of alcohol, cocaine and heroin was yesterday. Patient does not know about having a murmur in the past. Reports bilateral leg swelling which has been going on for the past few weeks but says it has been improving. Also noticed some rash on the lower extremities. Has nausea and diarrhea. Denies abdominal pain, fever, chest pain, SOB, back pain, headache, neck stiffness, cough or dizziness. No sick contacts or recent travels. Family history is unremarkable. OBJECTIVE: Alert Vital Signs Period Temp Pulse Resp BP Sys/Zelaya Pulse Ox Last 24 Hr 97.9 F-98.1 F 82-89 16-17 130-132/62-65 98-99 HEENT: No Jaundice, eye redness or discharge, PERRLA, EOMI. Normocephalic, atraumatic. External ears are normal and hearing is grossly intact. No nasal discharge. Neck: Supple, nontender. No palpable adenopathy or thyromegaly. No JVD Chest: Good effort. Clear to auscultation and percussion. Heart: Regular. No S3 or rub; 3/6 MAC Abdomen: Not distended, soft, nontender and no HSM. No rebound or guarding. Normal bowel sounds. Ext: Peripheral pulses intact. Leg edema. Skin: Warm and dry. No petechiae, rash or ecchymosis. Neuro: Alert. Oriented x3. CN 2-12 grossly intact. Sensation grossly intact in all four extremities and DTR are symmetric. Psych: Appropriate mood and affect. Good insight. Home Medications Medication Instructions Recorded Albuterol Sulfate Inhaler - 2 inh PO Q4H PRN 08/05/18 [Ventolin HFA Inhaler -] Albuterol Sulfate Inhaler - 2 puff IH Q4H PRN #1 inhaler 08/05/18 [Ventolin HFA Inhaler -] Amlodipine Besylate/Benazepril 1 cap PO DAILY 08/05/18 [Lotrel 10-20 mg Capsule] Budesonide/Formeterol Fumarate 2 puff IH BID #1 inhaler 08/05/18 [SYMBICORT 160/4.5mcg -] Abnormal Lab Results 02/09/20 02/09/20 02/09/20 15:50 15:50 15:50 RBC 3.45 L Hgb 9.0 L Hct 27.7 L D RDW 18.3 H Monocytes % 10.6 H PTT (Actin FS) 41.5 H Sodium 135 L Potassium 5.6 H Chloride 108 H Carbon Dioxide 20 L Anion Gap 6 L BUN 26.2 H Creatinine 1.6 H Calcium 8.0 L AST 62 H Alkaline Phosphatase 160 H Ammonia Creatine Kinase 221 H Total Protein 9.4 H Albumin 2.4 L Ur Leukocyte Esterase 02/09/20 02/09/20 02/09/20 15:50 16:25 16:55 RBC Hgb Hct RDW Monocytes % PTT (Actin FS) Sodium 134 L Potassium 5.3 H Chloride 108 H Carbon Dioxide Anion Gap 4 L BUN 26.0 H Creatinine 1.6 H Calcium 7.9 L AST Alkaline Phosphatase Ammonia 41.50 H Creatine Kinase Total Protein Albumin Ur Leukocyte Esterase 2+ H Current Medications Generic Name Dose Route Start Last Admin Trade Name Freq PRN Reason Stop Dose Admin Amlodipine Besylate 5 mg 02/10/20 10:00 Norvasc - PO DAILY NATHALY Folic Acid 1 mg 02/10/20 10:00 Folic Acid - PO DAILY [facility] Heparin Sodium (Porcine) 5,000 unit 02/09/20 22:00 02/09/20 23:46 Heparin - SQ 5,000 unit TID NATHALY Administration Lactated Ringer's 1,000 ml in 1,000 mls @ 83 mls/hr 02/09/20 21:30 Lactated Ringers Solution IV ASDIR NATHALY Ceftriaxone Sodium 1 gm/ 50 mls @ 100 mls/hr 02/09/20 21:45 02/09/20 23:44 Dextrose IVPB 100 mls/hr DAILY NATHALY Administration Protocol Folic Acid 1 mg/ Thiamine HCl 1,000 mls @ 125 mls/hr 02/09/20 22:00 02/09/20 23:45 100 mg/ Multivitamins/Minerals IVPB 02/10/20 05:59 125 mls/hr 10 ml/ Sodium Chloride ONCE ONE Administration Lorazepam 1 mg 02/11/20 05:00 Ativan - PO 02/11/20 23:01 0500,1100,1700,2300 NATHALY Lorazepam 1 mg 02/09/20 21:31 Ativan - PO 02/11/20 23:59 Q4H PRN Symptoms of Withdrawal Lorazepam 2 mg 02/09/20 23:00 02/09/20 23:38 Ativan - PO 02/10/20 23:01 2 mg 0500,1100,1700,2300 NATHALY Administration Lorazepam 0.5 mg 02/12/20 05:00 Ativan - PO 02/12/20 23:01 Q6H NATHALY Lorazepam 0.5 mg 02/12/20 00:00 Ativan - PO 02/12/20 23:59 Q4H PRN Symptoms of Withdrawal Lorazepam 0.5 mg 02/13/20 05:00 Ativan - PO 02/13/20 05:01 ONCE ONE Multivitamins/Minerals/Vitamin C 1 tab 02/10/20 10:00 Tab-A-Vit - PO DAILY NATHALY Thiamine HCl 100 mg 02/10/20 10:00 Vitamin B1 - PO DAILY [facility] ASSESSMENT AND PLAN: 1. UTI/Murmur - Sepsis workup done. Will treat with IV Rocephin 1 gm q 24 hours and hydrate with IV LR. CXR shows cardiomegaly and bibasilar atelectasis most marked in the RLL. Vascular study negative for leg DVT. Unclear if her murmur is new, but in view of IVDA and cardiomegaly, will get ECHO and consult Cardiology. Consult ID for HIV care. Viral testing for COVID-19 ordered and patient placed on airborne, droplet and contact isolation. EKG shows NSR at 84/minute and QTc [address]-T wave changes. Will continue comprehensive care for all of patients comorbid conditions including HAART for HIV disease and will get CD4 count/viral load. 2. CKD with superimposed AISSATOU Has multiple risk factors for CKD including HIV, HTN, Amyloidosis or Heroin. Diarrhea may be contributing to AISSATOU. 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 Diarrhea also likely contributing to normal anion gap metabolic acidosis. Hyperkalemia treated in the ER. Will strive to find out what HAART she is taking to make sure it is not nephrotoxic in view of her current reduced GFR. Hold Benazepril. Will get kidney sonogram, hydrate gently with LR to enhance K+ excretion, get urine protein/creatinine ratio, monitor urine output and consult Nephrology. Avoid nephrotoxic agents such as NSAIDS, aminoglycosides, contrast dyes and certain Alternative medicine products. 3. Polysubstance/Alcohol abuse - Will monitor closely for drug withdrawal. Implement [facility] alcohol withdrawal protocol and do neurochecks. Implement seizure, fall and aspiration precautions. Treat with IV Banana bag, thiamine and folic acid. Monitor and replete electrolytes (Ca,Mg,K,P). Counseled patient about abstaining from alcohol/illicit drug use. Will consult natural resources specialist and refer to alcohol/drug detox upon discharge. 4. Severe hypoalbuminemia - Possibly due to combined effects of malnutrition and inflammation associated with comorbid conditions. Will ensure adequate dietary protein intake and also consult frothing machine operator. 5. Anemia - Likely multifactorial. Will do basic anemia work up including serial stool guaiacs, reticulocyte count and iron studies. Would benefit from Procrit therapy once iron replete. 6. Hypertension Hold Benazepril and treat with Amlodipine. Subsequently, will revise regimen to ensure [id number] excellent BP control. Patient counseled on the injurious effects of uncontrolled hypertension. Nonpharmacologic measures to control hypertension like weight loss, salt restriction and exercise stressed. Importance of adherence to treatment regimen and attainment of normotension emphasized. 7. Tobacco Use Counseled on risks associated with tobacco use. We will provide patient all the necessary assistance to facilitate smoking cessation and pr escribe Nicotine patch. 8. DVT prophylaxis - Heparin 5000u sq tid. 9. Advance directives - Full code
[2020-02-09] MEDS ORDERED: LORazepam 1 MG TABLET PO PRN (21:31)
[2020-02-09] MEDS ORDERED: NYSTATIN 500,000 UNITS/5 ML SUSPENSION PO ONE ×2 (21:35→23:30)
[2020-02-09] MEDS ORDERED: FOLIC ACID INJECTION - 1 MG, THIAMINE HCL 100 MG, MULTIVIT INJECTION ADULT 10 ML in SOD... IVPB ONE (22:00)
[2020-02-09 22:06] VITALS: BMI 25.4
--- NOTE | 2020-02-09 22:12 | HP ---
CHIEF COMPLAINT: I don't feel good PCP: HISTORY OF PRESENT ILLNESS: Sheela Garrison is a 59 y F with a PMH of Polysubstance abuse(Heroin, Crack/cocaine, EtoH, tabacco), Asthma, HTN, HIV(on HAART-unkown medication), presented to ER from [facility] for evaluation of a murmur and LE Edema. Patient reports that she went to [facility] today to receive detox treatments and there she was found to have a murmur with b/l LE edema and was sent to ER for further evaluations. Patient does not know any details of her murmur and reports that b/l edema started about 3 days ago. Patient is complaining of nausea, vomiting, diarrhea x 3-4 today with some chills, abdominal and back pain. Denies any SOB, Chest pain, LOC, Falls, Headtrauma, recent seizure, dysuria, or hematuria. As per her Drug Hx: She reports Alcohol( used since 15 years of age, uses Beers multiple quartz/bottles per day), Heroin IV ( since 15 years of age, ODx4-last OD 6mnths ago, uses 2 bundles per day) Crack/cocaine -Smokes ( since 28 years of age, uses about 4-5 bags per day) and Nicotine 1 pck per day for 44 years. Last use: Alcohol, Crack/cocaine, and heroin yesterday. Previous detox on Jul 2018(complete)-relapsed January 2019. ED course: patient received Librium 25mg, LR 1,000ml and Hperkalemia cocktail( D5W, Insulin, Calcium gluconate). u/s b/l lower extremities revealed no DVT, CXR was significant for Prominent heart, Normal aorta and prominent jose. Bibasilar atelectatic changes most marked in the RLL, no infiltrates or pneumothorax, some degenerative changes w/wedging. ER course was notable for: (1) BUN/Crea 26/1.6, Na 134, K+ 5.3 (2) H/H 9.0/27.7, UA +2 Leuk est (3) LFTs: AST 62, ALT 24, AKLP 160. ammonia 41.50 Recent Travel: denies PAST MEDICAL HISTORY: As above in HPI PAST SURGICAL HISTORY: x 2 Social History: As above in HPI Smoking: Alcohol: Drugs: Lives with her in [place] Allergies No Known Allergies Allergy (Verified 08/01/18 17:18) HOME MEDICATIONS: Home Medications Medication Instructions Recorded Albuterol Sulfate Inhaler - 2 inh PO Q4H PRN 08/05/18 [Ventolin HFA Inhaler -] Albuterol Sulfate Inhaler - 2 puff IH Q4H PRN #1 inhaler 08/05/18 [Ventolin HFA Inhaler -] Amlodipine Besylate/Benazepril 1 cap PO DAILY 08/05/18 [Lotrel 10-20 mg Capsule] Budesonide/Formeterol Fumarate 2 puff IH BID #1 inhaler 08/05/18 [SYMBICORT 160/4.5mcg -] REVIEW OF SYSTEMS CONSTITUTIONAL: Present: chills Absent: fever, diaphoresis, generalized weakness, malaise, loss of appetite HEENT: Absent: rhinorrhea, nasal congestion, throat pain, difficulty swallowing, visual changes CARDIOVASCULAR: Present: peripheral edema Absent: chest pain, syncope, palpitations, irregular heart rate, lightheadedness RESPIRATORY: Absent: cough, shortness of breath, dyspnea with exertion, orthopnea, wheezing GASTROINTESTINAL: Present: abdominal pain, nausea, vomiting, diarrhea Absent: abdominal distension, constipation, melena, hematochezia GENITOURINARY: Absent: dysuria, frequency, urgency, hesitancy, hematuria, flank pain MUSCULOSKELETAL: Present: back pain, arthralgia Absent: myalgia, joint swelling, neck pain SKIN: Absent: rash, itching, pallor NEUROLOGIC: Absent: headache, focal weakness or paresthesias, dizziness, unsteady gait, seizure, bladder or bowel incontinence PSYCHIATRIC: Absent: hallucinations. PHYSICAL EXAMINATION Vital Signs - 24 hr 02/09/20 02/09/20 14:41 17:37 Temperature 98.1 F 97.9 F Pulse Rate 89 Pulse Rate [ 82 Apical] Respiratory 17 16 Rate Blood Pressure 132/65 Blood Pressure 130/62 [Right Arm] O2 Sat by Pulse 98 99 Oximetry (%) GENERAL: Awake, alert, and fully oriented, in no acute distress. HEAD: Normal with no signs of trauma. EYES: Pupils equal, round and reactive to light, extraocular movements intact, sclera anicteric, conjunctiva clear EARS, NOSE, THROAT: Ears normal, nares patent, oropharynx-Oral thrush. NECK: Normal range of motion, supple without lymphadenopathy, JVD, or masses. LUNGS: Breath sounds equal, clear to auscultation bilaterally. No wheezes, and no crackles. No accessory muscle use. HEART: Regular rate and rhythm, normal S1 and S2 with a 4/6 holosystolic murmur along the left lateral border, more prominent in apex. no rub or gallop. ABDOMEN: Soft, nontender, distended, increased bowel sounds, no guarding, no rebound, no masses. MUSCULOSKELETAL: Normal range of motion at all joints. No bony deformities or tenderness. No CVA tenderness. UPPER EXTREMITIES: 2+ pulses, warm, well-perfused. No cyanosis. No clubbing. No peripheral edema. Multiple visible track santiago in both arms. LOWER EXTREMITIES: 1+ pulses, warm, well-perfused. No calf tenderness. +2 pitting peripheral edema. NEUROLOGICAL: Normal speech. Normal gait. SKIN: Warm, dry, normal turgor, no rashes or lesions noted Laboratory Results - last 24 hr 02/09/20 02/09/20 02/09/20 15:50 15:50 15:50 WBC 6.6 RBC 3.45 L Hgb 9.0 L Hct 27.7 L D MCV 80.3 MCH 26.0 D MCHC 32.4 RDW 18.3 H Plt Count 186 MPV 8.4 Absolute Neuts (auto) 4.4 Neutrophils % 66.1 Lymphocytes % 20.4 Monocytes % 10.6 H Eosinophils % 2.4 Basophils % 0.5 Nucleated RBC % 0 PT with INR 12.50 INR 1.06 PTT (Actin FS) 41.5 H Sodium 135 L Potassium 5.6 H Chloride 108 H Carbon Dioxide 20 L Anion Gap 6 L BUN 26.2 H Creatinine 1.6 H Est GFR (CKD-EPI)AfAm 40.74 Est GFR (CKD-EPI)NonAf 35.15 Random Glucose 89 Lactic Acid Calcium 8.0 L Total Bilirubin 0.9 AST 62 H ALT 24 Alkaline Phosphatase 160 H Ammonia Creatine Kinase 221 H Creatine Kinase Index 1.4 CK-MB (CK-2) 3.3 Troponin I < 0.02 Total Protein 9.4 H Albumin 2.4 L Urine Color Urine Appearance Urine pH Ur Specific [place] Urine Protein Urine Glucose (UA) Urine Ketones Urine Blood Urine Nitrite Urine Bilirubin Urine Urobilinogen Ur Leukocyte Esterase Urine WBC (Auto) Urine RBC (Auto) Urine Casts (Auto) U Epithel Cells (Auto) Urine Bacteria (Auto) Blood Type Antibody Screen 02/09/20 02/09/20 02/09/20 15:50 15:50 15:50 WBC RBC Hgb Hct MCV MCH MCHC RDW Plt Count MPV Absolute Neuts (auto) Neutrophils % Lymphocytes % Monocytes % Eosinophils % Basophils % Nucleated RBC % PT with INR INR PTT (Actin FS) Sodium Potassium Chloride Carbon Dioxide Anion Gap BUN Creatinine Est GFR (CKD-EPI)AfAm Est GFR (CKD-EPI)NonAf Random Glucose Lactic Acid 1.0 Calcium Total Bilirubin AST ALT Alkaline Phosphatase Ammonia 41.50 H Creatine Kinase Creatine Kinase Index CK-MB (CK-2) Troponin I Total Protein Albumin Urine Color Urine Appearance Urine pH Ur Specific [place] Urine Protein Urine Glucose (UA) Urine Ketones Urine Blood Urine Nitrite Urine Bilirubin Urine Urobilinogen Ur Leukocyte Esterase Urine WBC (Auto) Urine RBC (Auto) Urine Casts (Auto) U Epithel Cells (Auto) Urine Bacteria (Auto) Blood Type O POSITIVE Antibody Screen Negative 02/09/20 02/09/20 02/09/20 15:50 16:25 16:55 WBC RBC Hgb Hct MCV MCH MCHC RDW Plt Count MPV Absolute Neuts (auto) Neutrophils % Lymphocytes % Monocytes % Eosinophils % Basophils % Nucleated RBC % PT with INR INR PTT (Actin FS) Sodium 134 L Potassium 5.3 H Chloride 108 H Carbon Dioxide 22 Anion Gap 4 L BUN 26.0 H Creatinine 1.6 H Est GFR (CKD-EPI)AfAm 40.74 Est GFR (CKD-EPI)NonAf 35.15 Random Glucose 106 Lactic Acid Calcium 7.9 L Total Bilirubin AST ALT Alkaline Phosphatase Ammonia Creatine Kinase Creatine Kinase Index CK-MB (CK-2) Troponin I Total Protein Albumin Urine Color Yellow Urine Appearance Clear Urine pH 7.5 Ur Specific [place] 1.010 Urine Protein Negative Urine Glucose (UA) Negative Urine Ketones Negative Urine Blood Negative Urine Nitrite Negative Urine Bilirubin Negative Urine Urobilinogen 1.0 Ur Leukocyte Esterase 2+ H Urine WBC (Auto) 60 Urine RBC (Auto) 12 Urine Casts (Auto) 1 U Epithel Cells (Auto) 20 Urine Bacteria (Auto) 382 Blood Type O POSITIVE Antibody Screen Negative ASSESSMENT/PLAN: 59 y F with a PMH of Polysubstance abuse(Heroin, Crack/cocaine, EtoH, tabacco), Asthma, HTN, HIV(on HAART-unkown medication), presented to ER from [facility] for evaluation of a murmur and LE Edema. u/s b/l lower extremities revealed no DVT. Labs revelead : UA +2 Leuk est, BUN/Crea 26/1.6, Na 134, K+ 5.3. Patient is admitted for Tele for further management of her withdrawal symptoms and management of UTI. 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 - Continue LR @ 83/hr - Will hold Benazepril(CHILANGO-I, can worsen kidney functions) - f/u Renal U/S - f/u Urine protein to creat ratio - Consulted Nephrology for further evaluation of her kidney functions, will f/u with recs - Avoid nephrotoxic medications #Holosystolic Murmur - unkown time of onset - CXR was significant for Prominent heart - patient has a hx of IV drug use, however does not fit into the clinical picture of Infective endorcaditis at this time. - will f/u with echocardiography, repeat EKG, and trops - Cardiology is consulted, will f/u with recs #Polysubstance abuse - Heroin, Crack/cocaine, EtoH, tabacco - CIWA score 20 - CIWA Ativan protocol is in place - Will continue to monitor for Withdrawal symptoms - Fall, aspiration, and seizure precautions are in place - Ordered IV banana bag w/ daily thiamin, folic acid and vitamin supplements. - will replete electrolytes as needed - will send patient to [facility] for detox after d/c #Anemia - unknown etiology, possibly multifactorial - H/H 04/23.7 - f/u with FOBT, reticulocyte count and iron studies #HTN - Holding Benazepril due to decreased kidney functions - will continue amlodipine - will monitor v/s #HIV - will f/u with [facility] for patients HAART medications - ID consulted for HIV management, will f/u with recs - Nystatin for oral thrush #FEN - LR @ 83ml/hr - Monitor electrolytes - Sodium controlled Diet #DVT - Heparin 5,000u SQ TID #DISPO - Continue to monitor patient on tele, pending ID, Nephro, and cardiology recs Visit type - Emergency Visit Emergency Visit: Yes ED Registration Date: 02/09/20 Care time: The patient presented to the Emergency Department on the above date and was hospitalized for further evaluation of their emergent condition. - New Patient This patient is new to me today: Yes Date on this admission: 02/11/20 - Critical Care Critical Care patient: No ATTENDING PHYSICIAN STATEMENT I saw and evaluated the patient. I reviewed the resident's note and discussed the case with the resident. I agree with the resident's findings and plan as documented. SUBJECTIVE: OBJECTIVE: ASSESSMENT AND PLAN:
[2020-02-09] MEDS ORDERED: cefTRIAXone SODIUM 1 GM VIAL ONE (23:21)
[2020-02-09] MEDS ORDERED: DEXTROSE 5%-WATER - 50 ML IVPB ONE (23:21)
[2020-02-09] MEDS: LORazepam 1 MG TABLET PO SCH (23:38)
[2020-02-09] MEDS: CEFTRIAXONE 1 GM in DEXTROSE 5%-WATER - 50 ML IVPB SCH (23:44)
[2020-02-09] MEDS: HEPARIN NA (PORCINE) 5,000 UNITS/ML 1ML VIAL SQ SCH (23:46)
[2020-02-10] MEDS: LACTATED RINGERS SOLUTION 1,000 ML/1,000 ML INFUS.BAG IV SCH ×2 (01:47→12:02)
[2020-02-10] MEDS: LORazepam 1 MG TABLET PO SCH (05:38)
[2020-02-10] MEDS: HEPARIN NA (PORCINE) 5,000 UNITS/ML 1ML VIAL SQ SCH (05:39)
[2020-02-10 07:22] LABS: EOS % 3.2 % (0-4.5); HEMATOCRIT 26.5 % (32.4-45.2); HEMOGLOBIN 8.6 GM/dL (10.7-15.3); MCH 25.6 pg (25.7-33.7); MCHC 32.4 g/dl (32.0-36.0); MEAN CELL VOLUME 79.2 fl (80-96); MEAN PLT VOLUME 8.3 fl (7.5-11.1); MONO % 12.4 % (3.8-10.2); NEUT % 54.4 % (42.8-82.8); PLATELET COUNT 185 K/MM3 (134-434); RBC 3.34 M/mm3 (3.60-5.2); RDW 17.5 % (11.6-15.6); RETICULOCYTES 1.64 % (0.5-1.5); WHITE BLOOD COUNT 5.8 K/mm3 (4.0-10.0)
[2020-02-10 07:48] LABS: ALK PHOS 145 U/L (45-117); ANION GAP 4 MMOL/L (8-16); BLOOD UREA NITROGEN 25.1 mg/dL (7-18); CHLORIDE 110 mmol/L (98-107); CO2 22 mmol/L (21-32); CREATININE 1.5 mg/dL (0.55-1.3); GLUCOSE,RANDOM 86 mg/dL (74-106); IRON SERUM 33 ug/dL (50-175); MAGNESIUM 2.1 mg/dL (1.8-2.4); PHOSPHOROUS 4.3 mg/dL (2.5-4.9); POTASSIUM 4.9 mmol/L (3.5-5.1); SGOT/AST 47 U/L (15-37); SGPT/ALT 20 U/L (13-61); SODIUM 137 mmol/L (136-145); TOT PROT 8.1 g/dl (6.4-8.2); TOTAL IRON BINDING CAPACITY 293 ug/dL (250-450)
--- NOTE | 2020-02-10 09:04 | EKG ---
Test Reason : Blood Pressure : / mmHG Vent. Rate : 084 BPM Atrial Rate : 084 BPM P-R Int : 124 ms QRS Dur : 088 ms QT Int : 378 ms P-R-T Axes : -02 021 061 degrees QTc Int : 446 ms NORMAL SINUS RHYTHM NORMAL ECG WHEN COMPARED WITH ECG OF 03-AUG-2018 07:15, NONSPECIFIC T WAVE ABNORMALITY NO LONGER EVIDENT IN LATERAL LEADS Confirmed by SANDRA DEL RIO, JACKSON ([id number]) on 02/10/2020 9:04:19 AM Referred By: Confirmed By:JACKSON FLORES MD
[2020-02-10] MEDS ORDERED: cloNIDine HCL 0.1 MG TABLET PO PRN (09:57)
[2020-02-10] MEDS ORDERED: chlordiazePOXIDE HCL 10 MG CAPSULE PO PRN (09:57)
[2020-02-10] MEDS ORDERED: amLODIPine BESYLATE 5 MG TABLET (FP) PO SCH (10:00)
[2020-02-10] MEDS ORDERED: METHADONE HCL 10 MG TABLET PO ONE (10:15)
--- NOTE | 2020-02-10 10:41 | CONSULT ---
[facility] Reason for Current Admission/Consult: Ms. Garrison is a 59 yo woman with polysubstance use whom we are consulted for advice on detox protocols. Referred by:: DESHAWN Herman IM - History History of Present Illness: Ms. Garrison is a 59 yo woman who presented 02/09/20 to [facility] stating "I'm tired of using every day, hurting myself, I'm getting too old". She was last here for detox in July of 2018. She completed detox at that time but, relapsed in January of 2019. She was sent to [facility] yesterday after a murmur was heard on auscultation. In addition she had new leg swelling. She has been treated with benzos for alcohol withdrawal. She now has orders for Librium and methadone detox protocols. 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 Heroin Substance amount: 2 bundles Frequency of use: Daily Substance route: Injection (ex: intravenous or skin popping) Date of Last Use: 02/08/20 First use age 15 y Yes: OC x4, last OD 6 mos ago No Narcan at home Cocaine-Crack Substance amount: 4-5 bags Frequency of use: Daily Substance route: Smoking Date of Last Use: 02/08/20 First use age 28y Nicotine Substance amount: 1 pack Frequency of use: Daily Substance route: Smoking Date of Last Use: 02/09/20 First use age 15 y Cannabis: stopped one month ago Methadone, 3 years ago, [facility] No Suboxone - Smoking History Smoking history: Current every day smoker Have you smoked in the past 12 months: Yes Aproximately how many cigarettes per day: 10 - Alcohol/Substance Use Hx Alcohol Use: Yes - History Source History Provided By: Patient, Medical Record - Alcohol/Substance Use Hx Alcohol Use: Yes Hx Substance Use: Yes Assessment Plan - Plan Plan: 1. Alchohol intoxication with uncomplicated withdrawal 2. Opioid withdrawal - Medication Detox Regimen/Protocol: Methadone/Librium
--- NOTE | 2020-02-10 10:42 | CONSULT ---
Consult Consult Specialty:: Nephrology Reason for Consultation:: AISSATOU - History of Present Illness Chief Complaint: sent in for edema History of Present Illness: Pt is a 59 year old female with pmhx of polysubstance abuse, asthma, htn, hiv who was sent in for edema and a murmur. She went to [facility] for rehab. 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 She denies history of ckd. She is a poor historian. She says that she has had lower ext edema for about 5 days. She has had diarrhea and feels nauseated. She denies shortness of breath. She denies dysuria or hematuria. She denies chest pain or palpitations. She drinks alcohol, uses iv heroin, smokes crack/cocain and smokes cigarettes. - History Source History Provided By: Patient - Past Medical History Cardio/Vascular: Yes: HTN Infectious Disease: Yes: HIV - Alcohol/Substance Use Hx Alcohol Use: Yes - Smoking History Smoking history: Current every day smoker Have you smoked in the past 12 months: Yes Aproximately how many cigarettes per day: 20 Home Medications - Allergies Allergies/Adverse Reactions: Allergies Allergy/AdvReac Type Severity Reaction Status Date / Time No Known Allergies Allergy Verified 08/01/18 17:18 - Home Medications Home Medications: Ambulatory Orders Albuterol Sulfate Inhaler - [Ventolin HFA Inhaler -] 2 inh PO Q4H PRN 08/05/18 Albuterol Sulfate Inhaler - [Ventolin HFA Inhaler -] 2 puff IH Q4H PRN #1 inhaler 08/05/18 Amlodipine Besylate/Benazepril [Lotrel 10-20 mg Capsule] 1 cap PO DAILY 08/05/18 Budesonide/Formeterol Fumarate [SYMBICORT 160/4.5mcg -] 2 puff IH BID #1 inhaler 08/05/18 Family Medical History Family History: Denies Review of Systems - Review of Systems Constitutional: reports: Malaise Eyes: reports: No Symptoms HENT: reports: No Symptoms Neck: reports: No Symptoms Cardiovascular: reports: Edema Respiratory: reports: No Symptoms Gastrointestinal: reports: No Symptoms Genitourinary: reports: No Symptoms Musculoskeletal: reports: No Symptoms Integumentary: reports: No Symptoms Neurological: reports: No Symptoms Endocrine: reports: No Symptoms Hematology/Lymphatic: reports: No Symptoms Psychiatric: reports: No Symptoms Physical Exam Vital Signs: Vital Signs Temperature 982 F H 02/10/20 04:00 Pulse Rate 101 H 02/10/20 00:39 Respiratory Rate 02/10/20 05:43 Blood Pressure 155/60 02/10/20 04:00 O2 Sat by Pulse Oximetry (%) 95 02/10/20 05:43 Constitutional: Yes: Calm Eyes: Yes: Conjunctiva Clear HENT: Yes: Atraumatic Cardiovascular: Yes: Murmur, S1, S2 Gastrointestinal: Yes: Soft Renal/: Yes: WNL Musculoskeletal: Yes: WNL Edema: Yes Edema: LLE: 1+, RLE: 1+ Neurological: Yes: Oriented Psychiatric: Yes: Oriented Labs: CBC, BMP 02/10/20 06:46 02/10/20 06:46 Laboratory Tests 08/02/18 02/09/20 02/09/20 07:40 15:50 16:25 Sodium 135 L Potassium 5.6 H Carbon Dioxide Creatinine 0.9 1.6 H Urine Protein Negative Urine Blood Negative 02/09/20 02/10/20 16:55 06:46 Sodium Potassium 5.3 H 4.9 Carbon Dioxide 22 Creatinine 1.6 H 1.5 H Urine Protein Urine Blood Imaging - Results Chest X-ray: Report Reviewed Problem List - Problems (1) AISSATOU (acute kidney injury) Code(s): N17.9 - ACUTE KIDNEY FAILURE, UNSPECIFIED (2) Cocaine dependence Code(s): F14.20 - COCAINE DEPENDENCE, UNCOMPLICATED Qualifiers: Substance use status: uncomplicated Qualified Code(s): F14.20 - Cocaine dependence, uncomplicated (3) Nicotine dependence Code(s): F17.200 - NICOTINE DEPENDENCE, UNSPECIFIED, UNCOMPLICATED Qualifiers: Nicotine product type: cigarettes Substance use status: in withdrawal Qualified Code(s): F17.213 - Nicotine dependence, cigarettes, with withdrawal (4) Opioid dependence with withdrawal Code(s): F11.23 - OPIOID DEPENDENCE WITH WITHDRAWAL (5) Essential hypertension Code(s): I10 - ESSENTIAL (PRIMARY) HYPERTENSION (6) Asthma Code(s): J45.909 - UNSPECIFIED ASTHMA, UNCOMPLICATED Qualifiers: Asthma severity: mild Asthma persistence: intermittent Asthma complication type: with status asthmaticus Qualified Code(s): J45.22 - Mild intermittent asthma with status asthmaticus (7) HIV (human immunodeficiency virus infection) Code(s): B20 - HUMAN IMMUNODEFICIENCY VIRUS [HIV] DISEASE Assessment/Plan Current Medications Generic Name Dose Route Start Last Admin Trade Name Freq PRN Reason Stop Dose Admin Amlodipine Besylate 10 mg 02/10/20 10:15 Norvasc - PO DAILY [facility] Chlordiazepoxide HCl 25 mg 02/10/20 13:00 Librium - PO 02/11/20 21:01 Q8H NATHALY Chlordiazepoxide HCl 10 mg 02/13/20 00:00 Librium - PO 02/13/20 23:59 Q12H PRN Signs/symptoms of Withdrawal Chlordiazepoxide HCl 10 mg 02/10/20 09:57 Librium - PO 02/12/20 23:59 Q8H PRN Signs/symptoms of Withdrawal Chlordiazepoxide HCl 15 mg 02/12/20 05:00 Librium - PO 02/12/20 21:01 Q8H [facility] Chlordiazepoxide HCl 10 mg 02/13/20 05:00 Librium - PO 02/13/20 21:01 Q8H [facility] Chlordiazepoxide HCl 10 mg 02/14/20 05:00 Librium - PO 02/14/20 05:01 ONCE ONE Clonidine 0.1 mg 02/10/20 09:57 Catapres - PO 02/11/20 23:59 Q4H PRN Withdrawal Symptoms Folic Acid 1 mg 02/10/20 10:00 Folic Acid - PO DAILY [facility] Lactated Ringer's 1,000 ml in 1,000 mls @ 83 mls/hr 02/09/20 21:30 02/10/20 01:47 Lactated Ringers Solution IV Not Given ASDIR [facility] Ceftriaxone Sodium 1 gm/ 50 mls @ 100 mls/hr 02/09/20 21:45 02/09/20 23:44 Dextrose IVPB 100 mls/hr DAILY [facility] Administration Protocol Methadone HCl 15 mg 02/11/20 10:00 Dolophine - PO 02/11/20 10:01 ONCE ONE Methadone HCl 10 mg 02/12/20 10:00 Dolophine - PO 02/12/20 10:01 ONCE ONE Methadone HCl 5 mg 02/13/20 06:00 Dolophine - PO 02/13/20 06:01 ONCE ONE Multivitamins/Minerals/Vitamin C 1 tab 02/10/20 10:00 Tab-A-Vit - PO DAILY NATHALY Pantoprazole Sodium 40 mg 02/10/20 10:15 Protonix - PO DAILY NATHALY Thiamine HCl 100 mg 02/10/20 10:00 Vitamin B1 - PO DAILY [facility] Impression 1. AISSATOU 2. hyperkalemia 3. hiv 4. multi drug abuse 5. asthma 6. htn Plan - check renal ultrasound - check echo - potassium improved - software sales representative improved - ua is negative for blood or protein - will need to review home meds, she does not know what she was on - repeat labs in am - check urine lytes and software sales representative
--- NOTE | 2020-02-10 11:03 | CON.CARD ---
Cardiology Consult (text) - Consultation Consultation Note: cc: sent from detox for mumur hx from charts, pt lethargic after sedation for agitation hpi: 59 f hx hiv, htn, polysubstance abuse (etoh, cocaine, heroin, smoking), who was sent from [facility] detox for murmur. Pt also reported le edema bl for few days. pmh: per hpi psh: none social: as per hpi fam: unknown ros: unable to obtain 2/2 ams meds: Home Medications Medication Instructions Recorded Albuterol Sulfate Inhaler - 2 inh PO Q4H PRN 08/05/18 [Ventolin HFA Inhaler -] Albuterol Sulfate Inhaler - 2 puff IH Q4H PRN #1 inhaler 08/05/18 [Ventolin HFA Inhaler -] Amlodipine Besylate/Benazepril 1 cap PO DAILY 08/05/18 [Lotrel 10-20 mg Capsule] Budesonide/Formeterol Fumarate 2 puff IH BID #1 inhaler 08/05/18 [SYMBICORT 160/4.5mcg -] pe: Vital Signs Period Temp Pulse Resp BP Sys/Zelaya Pulse Ox Last 24 Hr 97.9 F-982 F 82-101 16-20 130-155/60-73 85-99 nad no jvd rrr s1s2 +holosystolic murmur, no r/g abd nd pos bs no jaundice diaphoresis pos dp pt no carotid bruits cta bl trace le edema bl, no c/c lethargic Laboratory Last Values WBC 5.8 K/mm3 (4.0-10.0) 02/10/20 06:46 RBC 3.34 M/mm3 (3.60-5.2) L 02/10/20 06:46 Hgb 8.6 GM/dL (10.7-15.3) L 02/10/20 06:46 Hct 26.5 % (32.4-45.2) L 02/10/20 06:46 MCV 79.2 fl (80-96) L 02/10/20 06:46 MCH 25.6 pg (25.7-33.7) L 02/10/20 06:46 MCHC 32.4 g/dl (32.0-36.0) 02/10/20 06:46 RDW 17.5 % (11.6-15.6) H 02/10/20 06:46 Plt Count 185 K/MM3 (134-434) 02/10/20 06:46 MPV 8.3 fl (7.5-11.1) 02/10/20 06:46 Absolute Neuts (auto) 3.1 K/mm3 (1.5-8.0) 02/10/20 06:46 Neutrophils % 54.4 % (42.8-82.8) 02/10/20 06:46 Lymphocytes % 29.0 % (8-40) D 02/10/20 06:46 Monocytes % 12.4 % (3.8-10.2) H 02/10/20 06:46 Eosinophils % 3.2 % (0-4.5) 02/10/20 06:46 Basophils % 1.0 % (0-2.0) 02/10/20 06:46 Nucleated RBC % 0 % (0-0) 02/10/20 06:46 Retic Count 1.64 % (0.5-1.5) H 02/10/20 06:46 PT with INR 12.50 SEC (9.7-13.0) 02/09/20 15:50 INR 1.06 (0.83-1.09) 02/09/20 15:50 PTT (Actin FS) 41.5 SECONDS (25.2-36.5) H 02/09/20 15:50 Sodium 137 mmol/L (136-145) 02/10/20 06:46 Potassium 4.9 mmol/L (3.5-5.1) 02/10/20 06:46 Chloride 110 mmol/L (98-107) H 02/10/20 06:46 Carbon Dioxide 22 mmol/L (21-32) 02/10/20 06:46 Anion Gap 4 MMOL/L (8-16) L 02/10/20 06:46 BUN 25.1 mg/dL (7-18) H 02/10/20 06:46 Creatinine 1.5 mg/dL (0.55-1.3) H 02/10/20 06:46 Est GFR (CKD-EPI)AfAm 44.05 02/10/20 06:46 Est GFR (CKD-EPI)NonAf 38.01 02/10/20 06:46 Random Glucose 86 mg/dL (74-106) 02/10/20 06:46 Lactic Acid 1.0 mmol/L (0.4-2.0) 02/09/20 15:50 Calcium 8.0 mg/dL (8.5-10.1) L 02/10/20 06:46 Phosphorus 4.3 mg/dL (2.5-4.9) 02/10/20 06:46 Magnesium 2.1 mg/dL (1.8-2.4) 02/10/20 06:46 Iron 33 ug/dL (50-175) L 02/10/20 06:46 TIBC 293 ug/dL (250-450) 02/10/20 06:46 Iron Saturation 11 % (17.5-39) L 02/10/20 06:46 Unsaturated IBC 260 ug/dL (200-275) 02/10/20 06:46 Ferritin 22.3 ng/ml (8-388) 02/10/20 06:46 Total Bilirubin 1.0 mg/dL (0.2-1) 02/10/20 06:46 AST 47 U/L (15-37) H 02/10/20 06:46 ALT 20 U/L (13-61) 02/10/20 06:46 Alkaline Phosphatase 145 U/L (45-117) H 02/10/20 06:46 Ammonia 41.50 umol/L (11-32) H 02/09/20 15:50 Creatine Kinase 51 U/L (26-192) 02/10/20 06:46 Creatine Kinase Index 1.4 % (0.0-5.0) 02/09/20 15:50 CK-MB (CK-2) 3.3 ng/mL (0.5-3.6) 02/09/20 15:50 Troponin I < 0.02 ng/ml (0.00-0.05) 02/10/20 06:46 Total Protein 8.1 g/dl (6.4-8.2) 02/10/20 06:46 Albumin 2.0 g/dl (3.4-5.0) L 02/10/20 06:46 Urine Color Yellow 02/09/20 16:25 Urine Appearance Clear 02/09/20 16:25 Urine pH 7.5 (5.0-8.0) 02/09/20 16:25 Ur Specific [place] 1.010 (1.010-1.035) 02/09/20 16:25 Urine Protein Negative (NEGATIVE) 02/09/20 16:25 Urine Glucose (UA) Negative (NEGATIVE) 02/09/20 16:25 Urine Ketones Negative (NEGATIVE) 02/09/20 16:25 Urine Blood Negative (NEGATIVE) 02/09/20 16:25 Urine Nitrite Negative (NEGATIVE) 02/09/20 16:25 Urine Bilirubin Negative (NEGATIVE) 02/09/20 16:25 Urine Urobilinogen 1.0 mg/dL (0.2-1.0) 02/09/20 16:25 Ur Leukocyte Esterase 2+ (NEGATIVE) H 02/09/20 16:25 Urine WBC (Auto) 60 /uL (0-25.8) 02/09/20 16:25 Urine RBC (Auto) 12 /uL (0-23.9) 02/09/20 16:25 Urine Casts (Auto) 1 /uL (0-3.1) 02/09/20 16:25 U Epithel Cells (Auto) 20 /uL (0-25.1) 02/09/20 16:25 Urine Bacteria (Auto) 382 /uL (0-1359) 02/09/20 16:25 Blood Type O POSITIVE 02/09/20 15:50 Blood Type O POSITIVE 02/09/20 15:50 Antibody Screen Negative 02/09/20 15:50 Antibody Screen Negative 02/09/20 15:50 tele: sr ecg: wnl cxr: clear a/p: 59 f hx hiv, htn, polysubstance abuse (etoh, cocaine, heroin, smoking), who was sent from [facility] detox for murmur. murmur, le edema: -minimal le edema, cxr w/o chf. will check echo to evaluate murmur. htn: -cont ccb polysubstance abuse: -cessation, rehab planned luis: -cont ivfs, monitor cr
[2020-02-10] MEDS ORDERED: ALBUTEROL SO4 HFA INHALER IH PRN (11:44)
[2020-02-10] MEDS ORDERED: DEXTROSE 5%-WATER - 50 ML IVPB ONE (11:47)
[2020-02-10] MEDS ORDERED: cefTRIAXone SODIUM 1 GM VIAL ONE (11:47)
--- NOTE | 2020-02-10 11:53 | EKG ---
Test Reason : Blood Pressure : / mmHG Vent. Rate : 106 BPM Atrial Rate : 107 BPM P-R Int : 118 ms QRS Dur : 078 ms QT Int : 344 ms P-R-T Axes : 000 060 066 degrees QTc Int : 456 ms POOR DATA QUALITY, INTERPRETATION MAY BE ADVERSELY AFFECTED SINUS TACHYCARDIA VOLTAGE CRITERIA FOR LEFT VENTRICULAR HYPERTROPHY ABNORMAL ECG WHEN COMPARED WITH ECG OF 09-FEB-2020 15:54, NO SIGNIFICANT CHANGE WAS FOUND Confirmed by JACKSON FLORES MD ([id number]) on 02/10/2020 11:52:51 AM Referred By: GLORIA GROSS DR Confirmed By:JACKSON FLORES MD
[2020-02-10] MEDS: THIAMINE HCL 100 MG TABLET (FP) PO SCH (12:01)
[2020-02-10] MEDS: CEFTRIAXONE 1 GM in DEXTROSE 5%-WATER - 50 ML IVPB SCH (12:01)
[2020-02-10] MEDS: MULTIVITAMINS (DAILY MVI) TABLET (FP) PO SCH (12:01)
[2020-02-10] MEDS: FOLIC ACID 1 MG TABLET (FP) PO SCH (12:01)
[2020-02-10] MEDS: PANTOPRAZOLE 40 MG TABLET PO SCH (12:02)
[2020-02-10] MEDS: amLODIPine BESYLATE 10 MG TABLET (FP) PO SCH (12:02)
[2020-02-10] MEDS: chlordiazePOXIDE HCL 25 MG CAPSULE PO SCH ×2 (12:39→21:00)
--- NOTE | 2020-02-10 12:45 | PN ---
Progress Note (short form) - Note Progress Note: ID CONSULT DICTATED
--- NOTE | 2020-02-10 13:07 | PN ---
Physical Exam: SUBJECTIVE: Patient seen and examined at bedside this morning. Patient restless this morning, pulling IVs and walking around. Then became hypoxic to the 80s on room air, was also noted to be lethargic afterwards, received multiple doses of ativan overnight. At noon, patient was more awake, and more calm, received Librium and methadone.She ate lunch. Saturating 94-95% on 5L NC. OBJECTIVE: Vital Signs Temperature 98.8 F 02/10/20 10:00 Pulse Rate 94 H 02/10/20 10:00 Respiratory Rate 02/10/20 10:00 Blood Pressure 148/60 02/10/20 10:00 O2 Sat by Pulse Oximetry (%) 85 L 02/10/20 10:00 GENERAL: The patient is awake, alert, and fully oriented, on 5L NC HEAD: Normal with no signs of trauma. EYES: pupils pinpoint, sclera anicteric, conjunctiva clear, tearing ENT:dry mucous membranes. NECK: full range of motion, supple. LUNGS: Scattered rhonchi bilaterally HEART: Regular rate and rhythm, S1, S2, +holosystolic murmur ABDOMEN: Soft, mild diffuse tenderness, nondistended, normoactive bowel sounds AMADO: no hemorrhoids, no fissures, normal rectal tone, nonbloody stool on examining finger EXTREMITIES: 2+ pulses, warm, well-perfused, trace edema. SKIN: Warm, dry, normal turgor Laboratory Results - last 24 hr 02/09/20 02/09/20 02/09/20 15:50 15:50 15:50 WBC 6.6 RBC 3.45 L Hgb 9.0 L Hct 27.7 L D MCV 80.3 MCH 26.0 D MCHC 32.4 RDW 18.3 H Plt Count 186 MPV 8.4 Absolute Neuts (auto) 4.4 Neutrophils % 66.1 Lymphocytes % 20.4 Monocytes % 10.6 H Eosinophils % 2.4 Basophils % 0.5 Nucleated RBC % 0 Retic Count PT with INR 12.50 INR 1.06 PTT (Actin FS) 41.5 H Sodium 135 L Potassium 5.6 H Chloride 108 H Carbon Dioxide 20 L Anion Gap 6 L BUN 26.2 H Creatinine 1.6 H Est GFR (CKD-EPI)AfAm 40.74 Est GFR (CKD-EPI)NonAf 35.15 Random Glucose 89 Lactic Acid Calcium 8.0 L Phosphorus Magnesium Iron TIBC Iron Saturation Unsaturated IBC Ferritin Total Bilirubin 0.9 AST 62 H ALT 24 Alkaline Phosphatase 160 H Ammonia Creatine Kinase 221 H Creatine Kinase Index 1.4 CK-MB (CK-2) 3.3 Troponin I < 0.02 Total Protein 9.4 H Albumin 2.4 L Urine Color Urine Appearance Urine pH Ur Specific [place] Urine Protein Urine Glucose (UA) Urine Ketones Urine Blood Urine Nitrite Urine Bilirubin Urine Urobilinogen Ur Leukocyte Esterase Urine WBC (Auto) Urine RBC (Auto) Urine Casts (Auto) U Epithel Cells (Auto) Urine Bacteria (Auto) Blood Type Antibody Screen 02/09/20 02/09/20 02/09/20 15:50 15:50 15:50 WBC RBC Hgb Hct MCV MCH MCHC RDW Plt Count MPV Absolute Neuts (auto) Neutrophils % Lymphocytes % Monocytes % Eosinophils % Basophils % Nucleated RBC % Retic Count PT with INR INR PTT (Actin FS) Sodium Potassium Chloride Carbon Dioxide Anion Gap BUN Creatinine Est GFR (CKD-EPI)AfAm Est GFR (CKD-EPI)NonAf Random Glucose Lactic Acid 1.0 Calcium Phosphorus Magnesium Iron TIBC Iron Saturation Unsaturated IBC Ferritin Total Bilirubin AST ALT Alkaline Phosphatase Ammonia 41.50 H Creatine Kinase Creatine Kinase Index CK-MB (CK-2) Troponin I Total Protein Albumin Urine Color Urine Appearance Urine pH Ur Specific [place] Urine Protein Urine Glucose (UA) Urine Ketones Urine Blood Urine Nitrite Urine Bilirubin Urine Urobilinogen Ur Leukocyte Esterase Urine WBC (Auto) Urine RBC (Auto) Urine Casts (Auto) U Epithel Cells (Auto) Urine Bacteria (Auto) Blood Type O POSITIVE Antibody Screen Negative 02/09/20 02/09/20 02/09/20 15:50 16:25 16:55 WBC RBC Hgb Hct MCV MCH MCHC RDW Plt Count MPV Absolute Neuts (auto) Neutrophils % Lymphocytes % Monocytes % Eosinophils % Basophils % Nucleated RBC % Retic Count PT with INR INR PTT (Actin FS) Sodium 134 L Potassium 5.3 H Chloride 108 H Carbon Dioxide 22 Anion Gap 4 L BUN 26.0 H Creatinine 1.6 H Est GFR (CKD-EPI)AfAm 40.74 Est GFR (CKD-EPI)NonAf 35.15 Random Glucose 106 Lactic Acid Calcium 7.9 L Phosphorus Magnesium Iron TIBC Iron Saturation Unsaturated IBC Ferritin Total Bilirubin AST ALT Alkaline Phosphatase Ammonia Creatine Kinase Creatine Kinase Index CK-MB (CK-2) Troponin I Total Protein Albumin Urine Color Yellow Urine Appearance Clear Urine pH 7.5 Ur Specific [place] 1.010 Urine Protein Negative Urine Glucose (UA) Negative Urine Ketones Negative Urine Blood Negative Urine Nitrite Negative Urine Bilirubin Negative Urine Urobilinogen 1.0 Ur Leukocyte Esterase 2+ H Urine WBC (Auto) 60 Urine RBC (Auto) 12 Urine Casts (Auto) 1 U Epithel Cells (Auto) 20 Urine Bacteria (Auto) 382 Blood Type O POSITIVE Antibody Screen Negative 02/10/20 02/10/20 06:46 06:46 WBC 5.8 RBC 3.34 L Hgb 8.6 L Hct 26.5 L MCV 79.2 L MCH 25.6 L MCHC 32.4 RDW 17.5 H Plt Count 185 MPV 8.3 Absolute Neuts (auto) 3.1 Neutrophils % 54.4 Lymphocytes % 29.0 D Monocytes % 12.4 H Eosinophils % 3.2 Basophils % 1.0 Nucleated RBC % 0 Retic Count 1.64 H PT with INR INR PTT (Actin FS) Sodium 137 Potassium 4.9 Chloride 110 H Carbon Dioxide 22 Anion Gap 4 L BUN 25.1 H Creatinine 1.5 H Est GFR (CKD-EPI)AfAm 44.05 Est GFR (CKD-EPI)NonAf 38.01 Random Glucose 86 Lactic Acid Calcium 8.0 L Phosphorus 4.3 Magnesium 2.1 Iron 33 L TIBC 293 Iron Saturation 11 L Unsaturated IBC 260 Ferritin 22.3 Total Bilirubin 1.0 AST 47 H ALT 20 Alkaline Phosphatase 145 H Ammonia Creatine Kinase 51 Creatine Kinase Index CK-MB (CK-2) Troponin I < 0.02 Total Protein 8.1 Albumin 2.0 L Urine Color Urine Appearance Urine pH Ur Specific [place] Urine Protein Urine Glucose (UA) Urine Ketones Urine Blood Urine Nitrite Urine Bilirubin Urine Urobilinogen Ur Leukocyte Esterase Urine WBC (Auto) Urine RBC (Auto) Urine Casts (Auto) U Epithel Cells (Auto) Urine Bacteria (Auto) Blood Type Antibody Screen Active Medications Generic Name Dose Route Start Last Admin Trade Name Freq PRN Reason Stop Dose Admin Albuterol Sulfate 2 puff 02/10/20 11:44 Ventolin Hfa Inhaler - IH Q4H PRN ASTHMA Amlodipine Besylate 10 mg 02/10/20 10:15 02/10/20 12:02 Norvasc - PO 10 mg DAILY NATHALY Administration Bictegravir/Emtricitabine/Tenofovir 1 each 02/10/20 11:45 Biktarvy 50-200-25 Mg Tablet PO DAILY NATHALY Budesonide/Formoterol Fumarate 2 puff 02/10/20 22:00 Symbicort 80/4.5mcg - IH BID NATHALY Chlordiazepoxide HCl 25 mg 02/10/20 13:00 02/10/20 12:39 Librium - PO 02/11/20 21:01 25 mg Q8H NATHALY Administration Chlordiazepoxide HCl 10 mg 02/13/20 00:00 Librium - PO 02/13/20 23:59 Q12H PRN Signs/symptoms of Withdrawal Chlordiazepoxide HCl 10 mg 02/10/20 09:57 Librium - PO 02/12/20 23:59 Q8H PRN Signs/symptoms of Withdrawal Chlordiazepoxide HCl 15 mg 02/12/20 05:00 Librium - PO 02/12/20 21:01 Q8H NATHALY Chlordiazepoxide HCl 10 mg 02/13/20 05:00 Librium - PO 02/13/20 21:01 Q8H NATHALY Chlordiazepoxide HCl 10 mg 02/14/20 05:00 Librium - PO 02/14/20 05:01 ONCE ONE Clonidine 0.1 mg 02/10/20 09:57 Catapres - PO 02/11/20 23:59 Q4H PRN Withdrawal Symptoms Escitalopram Oxalate 10 mg 02/11/20 07:00 Lexapro - PO AM NATHALY Folic Acid 1 mg 02/10/20 10:00 02/10/20 12:01 Folic Acid - PO 1 mg DAILY NATHALY Administration Lactated Ringer's 1,000 ml in 1,000 mls @ 83 mls/hr 02/09/20 21:30 02/10/20 12:02 Lactated Ringers Solution IV 83 mls/hr ASDIR NATHALY Administration Ceftriaxone Sodium 1 gm/ 50 mls @ 100 mls/hr 02/09/20 21:45 02/10/20 12:01 Dextrose IVPB 100 mls/hr DAILY NATHALY Administration Protocol Methadone HCl 15 mg 02/11/20 10:00 Dolophine - PO 02/11/20 10:01 ONCE ONE Methadone HCl 10 mg 02/12/20 10:00 Dolophine - PO 02/12/20 10:01 ONCE ONE Methadone HCl 5 mg 02/13/20 06:00 Dolophine - PO 02/13/20 06:01 ONCE ONE Multivitamins/Minerals/Vitamin C 1 tab 02/10/20 10:00 02/10/20 12:01 Tab-A-Vit - PO 1 tab DAILY NATHALY Administration Pantoprazole Sodium 40 mg 02/10/20 10:15 02/10/20 12:02 Protonix - PO 40 mg DAILY NATHALY Administration Risperidone 1 mg 02/10/20 22:00 Risperdal - PO HS NATHALY Thiamine HCl 100 mg 02/10/20 10:00 02/10/20 12:01 Vitamin B1 - PO 100 mg DAILY NATHALY Administration ASSESSMENT/PLAN: Patient is a 59 year old female with a PMH of PSA, asthma, HTN, HIV (on HAART) presented from [facility] for evauation of a murmur and LE edema 3 days. In the ED she had nausea/vomiting, diarrhea x 3-4, chills, abdominal and back pain. #Holosystolic Murmur - unkown time of onset - CXR was significant for Prominent heart - patient has a hx of IV drug use, however does not fit into the clinical picture of Infective endorcaditis at this time. - EKG Sinus tachycardia with left ventricular hypertrophy - Echo pending - Cardiology (Dr. Alfred) following, recommendations appreciated #AISSATOU on CKD - Hyperkalemia, improving - Patient has multiple risk factors for CKD (HTN, HIV, Heroin use-amyloidosis) - Will hold Benazepril - f/u Renal U/S - f/u Urine protein to creat ratio - Creatinine/ electrolytes urine ordered - Avoid nephrotoxic medications - Nephrology (Dr. Shetty) is following. Recommendations appreciated #Acute hypoxic respiratory failure -may be 2/2 Asthma/COPD vs fluid overload, hypoventilation from PSA, libirium,methadone, ?aspiration -B/L LE US negative for DVT -Unable to order Chest CTA in light of AISSATOU -H/H dropping from baseline, unclear source, will hold off on chemical AC -Stool occult pending -will continue Ceftriaxone and Doxycycline -Supplemental oxygen as needed to keep SPO2>92% -ABG done - PO2 49 -Repeat CXR showing congestive changes -IV Lasix given, IVF discontinued -symbicort bid and ventolin ih prn -Pulm (Dr. Huizar) consulted. Recommendations appreciated. #Asthma - Symbicort bid and Ventolin IH prn #UTI - 2+ leukocyte esterase with 60 Urine WBC and 382 Urine Bacteria - Patient is asymptomatic, however, she is Immunocompromised(HIV) - continue Rocephin 1gm daily - ID (Dr. Darby) following, recommendations appreciated. #Polysubstance abuse - Heroin, Crack/cocaine, EtoH, tabacco - CIWA score 12 - librium protocol is in place - Methadone started for opiate withdrawal sx, COWS 12 - Will continue to monitor for Withdrawal symptoms - Fall, aspiration, and seizure precautions are in place - Ordered IV banana bag w/ daily thiamine, folic acid and vitamin supplements. - will replete electrolytes as needed - will send patient to [facility] for detox after d/c #Anemia - unknown etiology, possibly multifactorial - H/H 04/23.7 --> 8.6/26.5 - Hypoproliferating reticulocyte index of 0.66 - Iron studies show combined iron deficiency and inflammatory etiology. - f/u with [facility] #Transaminitis - trending down, likely 2/2 alcohol use - RUQ US pending #HTN - Holding Benazepril due to decreased kidney functions - will continue amlodipine - will monitor v/s #HIV/AIDS - On home medications - CD4/CD8/CD3 ratio ordered - Nystatin given for oral thrush - ID (Dr. Darby) following, recommendations appreciated. - Immunology consulted #Hx of psych d/o - On home medication of risperidone, lexapro #FEN - Not on any standing fluids - Monitor electrolytes - Sodium controlled Diet #DVT - SCDs, will hold chemical AC in light of anemia #Disposition - full code - Continue to monitor patient on tele Visit type - Emergency Visit Emergency Visit: Yes ED Registration Date: 02/09/20 Care time: The patient presented to the Emergency Department on the above date and was hospitalized for further evaluation of their emergent condition. - New Patient This patient is new to me today: Yes Date on this admission: 02/10/20 - Critical Care Critical Care patient: No ATTENDING PHYSICIAN STATEMENT I saw and evaluated the patient. I reviewed the resident's note and discussed the case with the resident. I agree with the resident's findings and plan as documented. SUBJECTIVE: OBJECTIVE: ASSESSMENT AND PLAN:
--- NOTE | 2020-02-10 13:09 | CONS ---
DATE OF CONSULTATION: DATE OF DICTATION: 02/10/2020 INFECTIOUS DISEASE CONSULTATION HISTORY OF PRESENT ILLNESS: The patient is a 59-year-old female who was evaluated for HIV medication. History was obtained from the chart. She does not give a reliable history. She has a history of polysubstance abuse and was admitted to [facility] for detox. She was found to have a heart murmur and lower extremity edema and was transferred to the [facility] for further evaluation. Patient was found to have pyuria and was empirically started on ceftriaxone for possible urinary tract infection. Blood cultures were obtained. A cardiology consultation was requested. Echocardiogram was ordered. Patient reports a longstanding history of HIV dating back to 1997. She denies any opportunistic infections. She reports being adherent to her antiretroviral therapy (Biktarvy). She states that she is undetectable and reports that her CD4 lymphocyte count is good; however, she was unaware of the exact number. PAST MEDICAL HISTORY: Positive for polysubstance abuse including heroin, alcohol, cocaine, tobacco. Past medical history also includes asthma, section, hypertension. ALLERGIES: No known allergies. LABORATORY DATA: White count 5.8, hematocrit 26.5, platelet count 185. Creatinine 1.5. Urinalysis 60 white cells. PHYSICAL EXAMINATION: General: She is chronically ill appearing. Vital Signs: Temperature 98.8, blood pressure 148/60, pulse 94, regular, respirations 20 per minute. HEENT: Sclerae are anicteric. Patient is edentulous. Cardiac: Heart sounds S1-S2 with a 2/6 pansystolic murmur. Lungs: Clear. Abdomen: Soft and nontender. Extremities: Edema 1+. IMPRESSION: 1. Heart murmur. 2. Polysubstance abuse. 3. Human immunodeficiency virus positive, possible acquired immunodeficiency syndrome. 4. Urinary tract infection. 5. Pedal edema. RECOMMENDATIONS: Obtain CD4 lymphocyte count. Continue Biktarvy. Obtain echocardiogram, ESR, C-reactive protein, blood cultures. Outpatient followup with primary HIV provider post discharge. Thank you for the kind referral. RYNE WHITLEY M.D. [id number]
[2020-02-10 14:07] LABS: ARTERIAL BLD GAS O2 SATURATION 86.6 mmHg (95-98); ARTERIAL BLOOD GAS BASE EXCESS -0.8 mmol/L (-2-2); ARTERIAL BLOOD GAS PO2 49.1 mmHg (80-100); ARTERIAL BLOOD GAS pH 7.443 (7.350-7.450)
[2020-02-10 14:08] LABS: ALLENS TEST POSITIVE
[2020-02-10] MEDS: BICTEGRAV/EMTRICIT/TENOFOV (BIKTARVY) 50-200-25 MG TABLET PO SCH (14:48)
[2020-02-10] MEDS ORDERED: DOCUSATE SODIUM 100 MG CAPSULE (FP) PO PRN (14:55)
[2020-02-10] MEDS ORDERED: FUROSEMIDE 40 MG/4 ML INJECTABLE VIAL ONE (15:00)
--- NOTE | 2020-02-10 15:01 | CON.PULM ---
Consult Consult Specialty:: PULMONARY Referred by:: Dr Presley Reason for Consultation:: hypoxia - History of Present Illness Chief Complaint: murmur History of Present Illness: 59yo female with h/o HTN, asthma, HIV, polysubstance abuse, smoker who wsa transferred from [facility] for evaluation of murmur. Started on librium john col, IVF, methadone. Initially saturating well but today became hypoxic to 80s on room air. Placed on nasal cannula with improvement but pulse ox still variable from 80s-90s. Pt very somnolent, arousable but falls asleep easily. Desaturations worse while sleeping. - History Source History Provided By: Patient, Medical Record Limitations to Obtaining History: Clinical Condition - Past Medical History Cardio/Vascular: Yes: HTN Pulmonary: Yes: Asthma Infectious Disease: Yes: HIV - Alcohol/Substance Use Hx Alcohol Use: Yes - Smoking History Smoking history: Current every day smoker Have you smoked in the past 12 months: Yes Aproximately how many cigarettes per day: 20 Home Medications - Allergies Allergies/Adverse Reactions: Allergies Allergy/AdvReac Type Severity Reaction Status Date / Time No Known Allergies Allergy Verified 08/01/18 17:18 - Home Medications Home Medications: Ambulatory Orders Albuterol Sulfate Inhaler - [Ventolin HFA Inhaler -] 2 inh PO Q4H PRN 08/05/18 Albuterol Sulfate Inhaler - [Ventolin HFA Inhaler -] 2 puff IH Q4H PRN #1 inhaler 08/05/18 Amlodipine Besylate/Benazepril [Lotrel 10-20 mg Capsule] 1 cap PO DAILY 08/05/18 Budesonide/Formeterol Fumarate [SYMBICORT 160/4.5mcg -] 2 puff IH BID #1 inhaler 08/05/18 Amlodipine Besylate/Benazepril [Lotrel 10-20 mg Capsule] 1 cap PO DAILY 02/10/20 Bictegrav/Emtricit/Tenofov Ala [Biktarvy 50-200-25 mg Tablet] 1 tab PO DAILY 02/10/20 Bictegrav/Emtricit/Tenofov Ala [Biktarvy 50-200-25 mg Tablet] 1 tablet PO DAILY 02/10/20 Escitalopram Oxalate [Lexapro -] 10 mg PO AM 02/10/20 Fluticasone/Salmeterol [Advair 250-50 Diskus] 1 inh PO BID 02/10/20 Risperidone 1 mg PO HS 02/10/20 Sulfamethoxazole/Trimethoprim [Bactrim DS -] 1 tablet PO DAILY 02/10/20 Zolpidem Tartrate [Ambien] 10 mg PO HS 02/10/20 Review of Systems Unable to obtain ROS, reason: pt somnolent Physical Exam Vital Sings: Vital Signs Temperature 98.8 F 02/10/20 10:00 Pulse Rate 94 H 02/10/20 10:00 Respiratory Rate 02/10/20 10:00 Blood Pressure 148/60 02/10/20 10:00 O2 Sat by Pulse Oximetry (%) 85 L 02/10/20 10:00 Constitutional: Yes: Other (somnolent) Eyes: Yes: Conjunctiva Clear, EOM Intact HENT: Yes: Atraumatic, Normocephalic Neck: Yes: Supple, Trachea Midline Cardiovascular: Yes: Regular Rate and Rhythm, Murmur Respiratory: Yes: Rhonchi ...Clubbing: No Gastrointestinal: Yes: Normal Bowel Sounds, Soft. No: Tenderness Edema: Yes Neurological: Yes: Lethargy Labs: CBC, BMP 02/10/20 06:46 02/10/20 06:46 ABG Results ABG pH 7.443 (7.350-7.450) 02/10/20 13:55 ABG HCO3 22.9 mmol/L (22-27) 02/10/20 13:55 ABG O2 Sat (Measured) 86.6 mmHg (95-98) L 02/10/20 13:55 ABG O2 Content No Result Required. 02/10/20 13:55 ABG Base Excess -0.8 mmol/L (-2-2) 02/10/20 13:55 Imaging - Results Chest X-ray: Report Reviewed, Image Reviewed (pulmonary vascular congestion, left effusion) Assessment/Plan Hypoxia Suspect Volume Overload vs CHF Polysubstance Abuse HIV HTN Smoker - hypoxia likely multifactorial with volume overload given new CXR findings, hypoventilation from librium/methadone, atelectasis and possible aspiration - would give lasix - monitor urine output, creatinine - echocardiogram - would try to minimize sedation - agree with empiric antibiotics for possible aspiration - inhaled bronchodilators - O2 to keep SpO2 >90% - smoking cessation Thank you for this consult Ivan Huizar MD
[2020-02-10] MEDS ORDERED: FUROSEMIDE 40 MG/4 ML INJECTABLE VIAL IVPUSH ONE (15:11)
[2020-02-10] MEDS: DOXYCYCLINE HYCLATE 100 MG CAPSULE PO SCH (17:35)
[2020-02-10] MEDS ORDERED: ACETAMINOPHEN 325 MG TABLET (FP) PO ONE (21:02)
[2020-02-10] MEDS ORDERED: risperiDONE 1 MG TABLET PO SCH (22:00)
[2020-02-10] MEDS ORDERED: SENNOSIDES 8.6MG TABLET (FP) PO SCH (22:00)
[2020-02-10] MEDS: BUDESONIDE/FORMETEROL FUMARATE 80/4.5 mcg INHALER IH SCH (22:32)
--- NOTE | 2020-02-11 00:07 | PN ---
Teaching Attending Note Name of Resident: Carla Herman ATTENDING PHYSICIAN STATEMENT I saw and evaluated the patient. I reviewed the resident's note and discussed the case with the resident. I agree with the resident's findings and plan as documented. SUBJECTIVE: Patient seen and examined at bedside, admitted for Etoh detox/heroin withdrawal, more somnolent, treating for PNA, ?aspiration. VSS. OBJECTIVE: GA somnolent, AAox1, drowsy but arousable HEENT NC/AT, neck supple, dry MM, no oral thrush, pupils constricted Chest distant BS, poor inspiratory effort, bibasilar crackles CVS s1, S2+, RRR Abd Soft, NT, ND Ext No LE edema Vital Signs - 24 hr 02/10/20 02/10/20 02/10/20 00:39 04:00 05:43 Temperature 98.7 F 982 F H Pulse Rate 101 H Respiratory 20 20 20 Rate Blood Pressure 154/65 155/60 O2 Sat by Pulse 95 95 Oximetry (%) 02/10/20 02/10/20 02/10/20 09:00 10:00 14:00 Temperature 98.8 F 98.8 F Pulse Rate 94 H 109 H Respiratory 20 Rate Blood Pressure 148/60 156/88 O2 Sat by Pulse 85 L 85 L Oximetry (%) 02/10/20 02/10/20 02/10/20 15:15 17:00 20:39 Temperature 98.7 F Pulse Rate 113 H Respiratory 20 Rate Blood Pressure 128/58 L O2 Sat by Pulse 91 L 92 L Oximetry (%) 02/10/20 21:00 Temperature 99.4 F Pulse Rate 110 H Respiratory 20 Rate Blood Pressure 142/83 O2 Sat by Pulse 92 L Oximetry (%) Microbiology 02/09/20 15:50 Blood - Peripheral Venous Blood Culture - Preliminary NO GROWTH OBTAINED AFTER 24 HOURS, INCUBATION TO CONTINUE FOR 4 DAYS. 02/09/20 15:50 Blood - Peripheral Venous Blood Culture - Preliminary NO GROWTH OBTAINED AFTER 24 HOURS, INCUBATION TO CONTINUE FOR 4 DAYS. Laboratory Results - last 24 hr 02/10/20 02/10/20 02/10/20 06:46 06:46 13:55 WBC 5.8 RBC 3.34 L Hgb 8.6 L Hct 26.5 L MCV 79.2 L MCH 25.6 L MCHC 32.4 RDW 17.5 H Plt Count 185 MPV 8.3 Absolute Neuts (auto) 3.1 Neutrophils % 54.4 Lymphocytes % 29.0 D Monocytes % 12.4 H Eosinophils % 3.2 Basophils % 1.0 Nucleated RBC % 0 ESR Retic Count 1.64 H Anticoagulation Therapy No Result Required. Puncture Site Right radial Patient Temperature No Result Required. ABG pH 7.443 ABG pCO2 34.30 L ABG pO2 49.1 L ABG HCO3 22.9 ABG O2 Sat (Measured) 86.6 L ABG O2 Content No Result Required. ABG Base Excess -0.8 Js Test Positive Patient On Oxygen Yes O2 Delivery Device No Result Required. Oxygen Flow Rate No Result Required. Vent Mode No Result Required. Vent Rate No Result Required. Mechanical Rate No Result Required. PEEP No Result Required. Pressure Support Vent No Result Required. Sodium 137 Potassium 4.9 Chloride 110 H Carbon Dioxide 22 Anion Gap 4 L BUN 25.1 H Creatinine 1.5 H Est GFR (CKD-EPI)AfAm 44.05 Est GFR (CKD-EPI)NonAf 38.01 Random Glucose 86 Calcium 8.0 L Phosphorus 4.3 Magnesium 2.1 Iron 33 L TIBC 293 Iron Saturation 11 L Unsaturated IBC 260 Ferritin 22.3 Total Bilirubin 1.0 AST 47 H ALT 20 Alkaline Phosphatase 145 H Creatine Kinase 51 Troponin I < 0.02 Total Protein 8.1 Albumin 2.0 L 02/10/20 15:00 WBC RBC Hgb Hct MCV MCH MCHC RDW Plt Count MPV Absolute Neuts (auto) Neutrophils % Lymphocytes % Monocytes % Eosinophils % Basophils % Nucleated RBC % ESR 86 H Retic Count Anticoagulation Therapy Puncture Site Patient Temperature ABG pH ABG pCO2 ABG pO2 ABG HCO3 ABG O2 Sat (Measured) ABG O2 Content ABG Base Excess Js Test Patient On Oxygen O2 Delivery Device Oxygen Flow Rate Vent Mode Vent Rate Mechanical Rate PEEP Pressure Support Vent Sodium Potassium Chloride Carbon Dioxide Anion Gap BUN Creatinine Est GFR (CKD-EPI)AfAm Est GFR (CKD-EPI)NonAf Random Glucose Calcium Phosphorus Magnesium Iron TIBC Iron Saturation Unsaturated IBC Ferritin Total Bilirubin AST ALT Alkaline Phosphatase Creatine Kinase Troponin I Total Protein Albumin Home Medications Medication Instructions Recorded Albuterol Sulfate Inhaler - 2 inh PO Q4H PRN 08/05/18 [Ventolin HFA Inhaler -] Albuterol Sulfate Inhaler - 2 puff IH Q4H PRN #1 inhaler 01/09/19 [Ventolin HFA Inhaler -] Amlodipine Besylate/Benazepril 1 cap PO DAILY 08/05/18 [Lotrel 10-20 mg Capsule] Budesonide/Formeterol Fumarate 2 puff IH BID #1 inhaler 08/05/18 [SYMBICORT 160/4.5mcg -] Amlodipine Besylate/Benazepril 1 cap PO DAILY 02/10/20 [Lotrel 10-20 mg Capsule] Bictegrav/Emtricit/Tenofov Ala 1 tab PO DAILY 02/10/20 [Biktarvy 50-200-25 mg Tablet] Bictegrav/Emtricit/Tenofov Ala 1 tablet PO DAILY 02/10/20 [Biktarvy 50-200-25 mg Tablet] Escitalopram Oxalate [Lexapro -] 10 mg PO AM 02/10/20 Fluticasone/Salmeterol [Advair 1 inh PO BID 02/10/20 250-50 Diskus] Risperidone 1 mg PO HS 02/10/20 Sulfamethoxazole/Trimethoprim 1 tablet PO DAILY 02/10/20 [Bactrim DS -] Zolpidem Tartrate [Ambien] 10 mg PO HS 02/10/20 Current Medications Generic Name Dose Route Start Last Admin Trade Name Isidoroq PRN Reason Stop Dose Admin Albuterol Sulfate 2 puff 02/10/20 11:44 Ventolin Hfa Inhaler - IH Q4H PRN ASTHMA Amlodipine Besylate 10 mg 02/10/20 10:15 02/10/20 12:02 Norvasc - PO 10 mg DAILY [facility] Administration Bictegravir/Emtricitabine/Tenofovir 1 each 02/10/20 11:45 02/10/20 14:48 Biktarvy 50-200-25 Mg Tablet PO 1 each DAILY [facility] Administration Budesonide/Formoterol Fumarate 2 puff 02/10/20 22:00 02/10/20 22:32 Symbicort 80/4.5mcg - IH 2 puff BID [facility] Administration Chlordiazepoxide HCl 25 mg 02/10/20 13:00 02/10/20 21:00 Librium - PO 02/11/20 21:01 25 mg Q8H [facility] Administration Chlordiazepoxide HCl 10 mg 07/19/20 00:00 Librium - PO 02/13/20 23:59 Q12H PRN Signs/symptoms of Withdrawal Chlordiazepoxide HCl 10 mg 02/10/20 09:57 Librium - PO 02/12/20 23:59 Q8H PRN Signs/symptoms of Withdrawal Chlordiazepoxide HCl 15 mg 02/12/20 05:00 Librium - PO 02/12/20 21:01 Q8H [facility] Chlordiazepoxide HCl 10 mg 02/13/20 05:00 Librium - PO 02/13/20 21:01 Q8H [facility] Chlordiazepoxide HCl 10 mg 02/14/20 05:00 Librium - PO 02/14/20 05:01 ONCE ONE Clonidine 0.1 mg 02/10/20 09:57 Catapres - PO 02/11/20 23:59 Q4H PRN Withdrawal Symptoms Docusate Sodium 100 mg 02/10/20 14:55 Colace - PO BID PRN CONSTIPATION Doxycycline Hyclate 100 mg 02/10/20 18:00 02/10/20 17:35 Vibramycin - PO 100 mg BID@1000,1800 [facility] Administration Escitalopram Oxalate 10 mg 02/11/20 07:00 Lexapro - PO AM [facility] Folic Acid 1 mg 02/10/20 10:00 02/10/20 12:01 Folic Acid - PO 1 mg DAILY [facility] Administration Ceftriaxone Sodium 1 gm/ 50 mls @ 100 mls/hr 02/09/20 21:45 02/10/20 12:01 Dextrose IVPB 100 mls/hr DAILY [facility] Administration Protocol Methadone HCl 15 mg 02/11/20 10:00 Dolophine - PO 02/11/20 10:01 ONCE ONE Methadone HCl 10 mg 02/12/20 10:00 Dolophine - PO 02/12/20 10:01 ONCE ONE Methadone HCl 5 mg 02/13/20 06:00 Dolophine - PO 02/13/20 06:01 ONCE ONE Multivitamins/Minerals/Vitamin C 1 tab 02/10/20 10:00 02/10/20 12:01 Tab-A-Vit - PO 1 tab DAILY [facility] Administration Pantoprazole Sodium 40 mg 02/10/20 10:15 02/10/20 12:02 Protonix - PO 40 mg DAILY [facility] Administration Risperidone 1 mg 02/10/20 22:00 07/16/20 21:01 Risperdal - PO 1 mg HS [facility] Administration Senna 1 tab 02/10/20 22:00 02/10/20 21:01 Senna - PO 1 tab HS [facility] Administration Thiamine HCl 100 mg 02/10/20 10:00 02/10/20 12:01 Vitamin B1 - PO 100 mg DAILY [facility] Administration ASSESSMENT AND PLAN: 59 F Hypoxia Suspect Volume Overload vs CHF PSA HIV on HAART HTN Smoker Plan: O2 to keep SpO2 >90%, bronchodilators, abx for CAP, low threshold for intubation Hypoxia driven by ?PNA/PE, cannot give contrast for PE study/also anemia of unknown etiology cannot give full dose Lovenox d/t suspected bleed Close monitoring, hold Benzo/Methadone too somnolent Pulmonary evaluation Detox eval DVT ppx: SCD
[2020-02-11] MEDS: chlordiazePOXIDE HCL 25 MG CAPSULE PO SCH (04:55)
[2020-02-11] MEDS ORDERED: LORazepam 1 MG TABLET PO SCH (05:00)
--- NOTE | 2020-02-11 06:22 | PN ---
Progress Note, Physician Chief Complaint: Denies CP/SOB/palps TELE: NSR History of Present Illness: Poly sub abuce Murmur AISSATOU Anemia + cigs - Current Medication List Current Medications: Active Medications Albuterol Sulfate (Ventolin Hfa Inhaler -) 2 puff IH Q4H PRN PRN Reason: ASTHMA Amlodipine Besylate (Norvasc -) 10 mg PO DAILY [facility] Last Admin: 02/10/20 12:02 Dose: 10 mg Documented by: Bictegravir/Emtricitabine/Tenofovir (Biktarvy 50-200-25 Mg Tablet) 1 each PO DAILY [facility] Last Admin: 02/10/20 14:48 Dose: 1 each Documented by: Budesonide/Formoterol Fumarate (Symbicort 80/4.5mcg -) 2 puff IH BID [facility] Last Admin: 02/10/20 22:32 Dose: 2 puff Documented by: Chlordiazepoxide HCl (Librium -) 25 mg PO Q8H [facility] Stop: 02/11/20 21:01 Last Admin: 02/11/20 04:55 Dose: 25 mg Documented by: Chlordiazepoxide HCl (Librium -) 10 mg PO Q12H PRN PRN Reason: Signs/symptoms of Withdrawal Stop: 02/13/20 23:59 Chlordiazepoxide HCl (Librium -) 10 mg PO Q8H PRN PRN Reason: Signs/symptoms of Withdrawal Stop: 02/12/20 23:59 Last Admin: 02/11/20 02:56 Dose: 10 mg Documented by: Chlordiazepoxide HCl (Librium -) 15 mg PO Q8H [facility] Stop: 02/12/20 21:01 Chlordiazepoxide HCl (Librium -) 10 mg PO Q8H [facility] Stop: 02/13/20 21:01 Chlordiazepoxide HCl (Librium -) 10 mg PO ONCE ONE Stop: 02/14/20 05:01 Clonidine (Catapres -) 0.1 mg PO Q4H PRN PRN Reason: Withdrawal Symptoms Stop: 02/11/20 23:59 Docusate Sodium (Colace -) 100 mg PO BID PRN PRN Reason: CONSTIPATION Doxycycline Hyclate (Vibramycin -) 100 mg PO BID@1000,1800 [facility] Last Admin: 02/10/20 17:35 Dose: 100 mg Documented by: Escitalopram Oxalate (Lexapro -) 10 mg PO AM [facility] Last Admin: 02/11/20 06:21 Dose: 10 mg Documented by: Folic Acid (Folic Acid -) 1 mg PO DAILY [facility] Last Admin: 02/10/20 12:01 Dose: 1 mg Documented by: Ceftriaxone Sodium 1 gm/ (Dextrose) 50 mls @ 100 mls/hr IVPB DAILY [facility]; Protocol Last Admin: 02/10/20 12:01 Dose: 100 mls/hr Documented by: Multivitamins/Minerals/Vitamin C (Tab-A-Vit -) 1 tab PO DAILY [facility] Last Admin: 02/10/20 12:01 Dose: 1 tab Documented by: Pantoprazole Sodium (Protonix -) 40 mg PO DAILY [facility] Last Admin: 02/10/20 12:02 Dose: 40 mg Documented by: Risperidone (Risperdal -) 1 mg PO HS [facility] Last Admin: 02/10/20 21:01 Dose: 1 mg Documented by: Senna (Senna -) 1 tab PO HS [facility] Last Admin: 02/10/20 21:01 Dose: 1 tab Documented by: Thiamine HCl (Vitamin B1 -) 100 mg PO DAILY [facility] Last Admin: 02/10/20 12:01 Dose: 100 mg Documented by: - Objective Vital Signs: Vital Signs Temperature 99.3 F 02/11/20 04:55 Pulse Rate 113 H 02/11/20 04:55 Respiratory Rate 20 02/11/20 04:55 Blood Pressure 115/70 02/11/20 04:55 O2 Sat by Pulse Oximetry (%) 93 L 02/11/20 06:15 Constitutional: Yes: No Distress, Calm Cardiovascular: Yes: Regular Rate and Rhythm, Murmur Respiratory: Yes: CTA Bilaterally Gastrointestinal: Yes: Soft (nt) Edema: No Peripheral Pulses WNL: Yes Neurological: Yes: Alert, Oriented ...Motor Strength: WNL Labs: CBC, BMP 02/10/20 06:46 02/10/20 06:46 INR, PTT INR 1.06 (0.83-1.09) 02/09/20 15:50 Microbiology 02/09/20 15:50 Blood - Peripheral Venous Blood Culture - Preliminary NO GROWTH OBTAINED AFTER 24 HOURS, INCUBATION TO CONTINUE FOR 4 DAYS. 02/09/20 15:50 Blood - Peripheral Venous Blood Culture - Preliminary NO GROWTH OBTAINED AFTER 24 HOURS, INCUBATION TO CONTINUE FOR 4 DAYS. Laboratory Tests 02/09/20 02/10/20 02/11/20 15:50 06:46 07:20 WBC Hgb MCV Plt Count Sodium 138 Potassium 4.5 BUN 22.2 H Creatinine 1.5 H Magnesium 2.1 Troponin I < 0.02 < 0.02 Albumin 2.0 L 02/11/20 02/11/20 07:20 07:20 WBC Pending Hgb 8.2 L MCV 78.2 L Plt Count 201 Sodium Potassium BUN Creatinine Magnesium Troponin I Albumin - ....Imaging EKG: Image Reviewed Assessment/Plan tele: sr ecg: wnl cxr: clear a/p: 59 f hx hiv, htn, polysubstance abuse (etoh, cocaine, heroin, smoking), who was sent from [facility] for murmur. Murmur: -minimal le edema, cxr w/o chf. Echo pending. htn: -cont ccb -Not requiring PRN Clonidine polysubstance abuse: -cessation, rehab planned aissatou: -cont ivfs, monitor cr Anemia: -As per PMD Resp failure: -Requiring 40% FIO2, off O2 90% -CXR reviewed- b/l patchy infiltrates, check Chest CT. Do not think this is all volume overload and CT will help define parenchyma -D/W RN. If sig congestive changes are noted, will diurese further
[2020-02-11] MEDS ORDERED: ESCITALOPRAM OXALATE 10 MG TABLET PO SCH (07:00)
[2020-02-11 08:15] LABS: EOS % 2.3 % (0-4.5); HEMATOCRIT 25.1 % (32.4-45.2); HEMOGLOBIN 8.2 GM/dL (10.7-15.3); LYMPH % 24.3 % (8-40); MCH 25.6 pg (25.7-33.7); MCHC 32.8 g/dl (32.0-36.0); MEAN CELL VOLUME 78.2 fl (80-96); MEAN PLT VOLUME 8.2 fl (7.5-11.1); NEUT % 59.4 % (42.8-82.8); PLATELET COUNT 201 K/MM3 (134-434); RBC 3.21 M/mm3 (3.60-5.2); RDW 17.4 % (11.6-15.6); WHITE BLOOD COUNT 5.4 K/mm3 (4.0-10.0)
[2020-02-11 08:55] LABS: BLOOD UREA NITROGEN 22.2 mg/dL (7-18); MAGNESIUM 2.1 mg/dL (1.8-2.4); POTASSIUM 4.5 mmol/L (3.5-5.1)
[2020-02-11 09:00] LABS: BILIRUBIN,TOTAL 0.8 mg/dL (0.2-1); CALCIUM 8.4 mg/dL (8.5-10.1); CREATININE 1.5 mg/dL (0.55-1.3); PHOSPHOROUS 4.9 mg/dL (2.5-4.9); TOT PROT 8.6 g/dl (6.4-8.2)
[2020-02-11] MEDS ORDERED: DEXTROSE 5%-WATER - 50 ML IVPB ONE (09:42)
[2020-02-11] MEDS ORDERED: cefTRIAXone SODIUM 1 GM VIAL ONE (09:42)
[2020-02-11] MEDS: BUDESONIDE/FORMETEROL FUMARATE 80/4.5 mcg INHALER IH SCH (09:52)
[2020-02-11] MEDS: FOLIC ACID 1 MG TABLET (FP) PO SCH (09:52)
[2020-02-11] MEDS: DOXYCYCLINE HYCLATE 100 MG CAPSULE PO SCH ×2 (09:52→17:12)
[2020-02-11] MEDS: MULTIVITAMINS (DAILY MVI) TABLET (FP) PO SCH (09:52)
[2020-02-11] MEDS: amLODIPine BESYLATE 10 MG TABLET (FP) PO SCH (09:52)
[2020-02-11] MEDS: PANTOPRAZOLE 40 MG TABLET PO SCH (09:52)
[2020-02-11] MEDS: CEFTRIAXONE 1 GM in DEXTROSE 5%-WATER - 50 ML IVPB SCH (09:53)
[2020-02-11] MEDS: BICTEGRAV/EMTRICIT/TENOFOV (BIKTARVY) 50-200-25 MG TABLET PO SCH (09:53)
[2020-02-11] MEDS: THIAMINE HCL 100 MG TABLET (FP) PO SCH (09:53)
[2020-02-11] MEDS ORDERED: METHADONE HCL 5 MG TABLET (FOR DETOX USE ONLY) PO ONE (10:00)
[2020-02-11] MEDS ORDERED: FUROSEMIDE 40 MG/4 ML INJECTABLE VIAL IVPUSH SCH (10:00)
--- NOTE | 2020-02-11 10:28 | PN ---
Progress Note, Physician History of Present Illness: pulmonary alert,comfortable,-sob,-cp - Current Medication List Current Medications: Active Medications Albuterol Sulfate (Ventolin Hfa Inhaler -) 2 puff IH Q4H PRN PRN Reason: ASTHMA Amlodipine Besylate (Norvasc -) 10 mg PO DAILY [facility] Last Admin: 02/11/20 09:52 Dose: 10 mg Documented by: Bictegravir/Emtricitabine/Tenofovir (Biktarvy 50-200-25 Mg Tablet) 1 each PO DAILY [facility] Last Admin: 02/11/20 09:53 Dose: 1 each Documented by: Budesonide/Formoterol Fumarate (Symbicort 80/4.5mcg -) 2 puff IH BID [facility] Last Admin: 02/11/20 09:52 Dose: 2 puff Documented by: Clonidine (Catapres -) 0.1 mg PO Q4H PRN PRN Reason: Withdrawal Symptoms Stop: 02/11/20 23:59 Docusate Sodium (Colace -) 100 mg PO BID PRN PRN Reason: CONSTIPATION Doxycycline Hyclate (Vibramycin -) 100 mg PO BID@1000,1800 [facility] Last Admin: 02/11/20 09:52 Dose: 100 mg Documented by: Escitalopram Oxalate (Lexapro -) 10 mg PO AM [facility] Last Admin: 02/11/20 06:21 Dose: 10 mg Documented by: Folic Acid (Folic Acid -) 1 mg PO DAILY [facility] Last Admin: 02/11/20 09:52 Dose: 1 mg Documented by: Furosemide (Lasix Injection -) 40 mg IVPUSH DAILY [facility] Last Admin: 02/11/20 10:15 Dose: 40 mg Documented by: Ceftriaxone Sodium 1 gm/ (Dextrose) 50 mls @ 100 mls/hr IVPB DAILY [facility]; Protocol Last Admin: 02/11/20 09:53 Dose: 100 mls/hr Documented by: Multivitamins/Minerals/Vitamin C (Tab-A-Vit -) 1 tab PO DAILY [facility] Last Admin: 02/11/20 09:52 Dose: 1 tab Documented by: Pantoprazole Sodium (Protonix -) 40 mg PO DAILY [facility] Last Admin: 02/11/20 09:52 Dose: 40 mg Documented by: Risperidone (Risperdal -) 1 mg PO HS [facility] Last Admin: 02/10/20 21:01 Dose: 1 mg Documented by: Senna (Senna -) 1 tab PO HS [facility] Last Admin: 02/10/20 21:01 Dose: 1 tab Documented by: Thiamine HCl (Vitamin B1 -) 100 mg PO DAILY [facility] Last Admin: 02/11/20 09:53 Dose: 100 mg Documented by: - Objective Vital Signs: Vital Signs Temperature 98.4 F 02/11/20 08:10 Pulse Rate 109 H 02/11/20 08:10 Respiratory Rate 22 H 02/11/20 08:10 Blood Pressure 120/68 02/11/20 08:10 O2 Sat by Pulse Oximetry (%) 93 L 02/11/20 08:10 Constitutional: Yes: Well Nourished, Calm Eyes: Yes: WNL HENT: Yes: WNL Neck: Yes: WNL Cardiovascular: Yes: Regular Rate and Rhythm, S1, S2 Respiratory: Yes: Rales (bibasilar rales) Gastrointestinal: Yes: Normal Bowel Sounds Extremities: Yes: WNL Edema: No Labs: CBC, BMP 02/11/20 07:20 02/11/20 07:20 INR, PTT INR 1.06 (0.83-1.09) 02/09/20 15:50 Problem List - Problems (1) Hypoxemia Code(s): R09.02 - HYPOXEMIA (2) Nicotine dependence Code(s): F17.200 - NICOTINE DEPENDENCE, UNSPECIFIED, UNCOMPLICATED Qualifiers: Nicotine product type: cigarettes Substance use status: in withdrawal Qualified Code(s): F17.213 - Nicotine dependence, cigarettes, with withdrawal (3) Essential hypertension Code(s): I10 - ESSENTIAL (PRIMARY) HYPERTENSION (4) Asthma Code(s): J45.909 - UNSPECIFIED ASTHMA, UNCOMPLICATED Qualifiers: Asthma severity: mild Asthma persistence: intermittent Asthma complication type: with status asthmaticus Qualified Code(s): J45.22 - Mild intermittent asthma with status asthmaticus (5) HIV (human immunodeficiency virus infection) Code(s): B20 - HUMAN IMMUNODEFICIENCY VIRUS [HIV] DISEASE Assessment/Plan Assessment/Plan Hypoxia Suspect Volume Overload vs CHF Polysubstance Abuse HIV HTN Smoker - hypoxia likely multifactorial with volume overload given new CXR findings, hypoventilation from librium/methadone, atelectasis and possible aspiration - lasix - monitor urine output, creatinine - minimize sedation - empiric antibiotics for possible aspiration - inhaled bronchodilators - O2 to keep SpO2 >90% - smoking cessation DR REDMOND
[2020-02-11 12:12] LABS: N-TERMINAL BNP 240.1 pg/ml (5-125)
--- NOTE | 2020-02-11 13:09 | PN ---
Progress Note, Physician History of Present Illness: Pt seen and examined at bedside. She is more awake and alert today. She denies shortness of breath at rest. - Current Medication List Current Medications: Active Medications Albuterol Sulfate (Ventolin Hfa Inhaler -) 2 puff IH Q4H PRN PRN Reason: ASTHMA Amlodipine Besylate (Norvasc -) 10 mg PO DAILY [facility] Last Admin: 02/11/20 09:52 Dose: 10 mg Documented by: Bictegravir/Emtricitabine/Tenofovir (Biktarvy 50-200-25 Mg Tablet) 1 each PO DAILY [facility] Last Admin: 02/11/20 09:53 Dose: 1 each Documented by: Budesonide/Formoterol Fumarate (Symbicort 80/4.5mcg -) 2 puff IH BID [facility] Last Admin: 02/11/20 09:52 Dose: 2 puff Documented by: Clonidine (Catapres -) 0.1 mg PO Q4H PRN PRN Reason: Withdrawal Symptoms Stop: 02/11/20 23:59 Docusate Sodium (Colace -) 100 mg PO BID PRN PRN Reason: CONSTIPATION Doxycycline Hyclate (Vibramycin -) 100 mg PO BID@1000,1800 [facility] Last Admin: 02/11/20 09:52 Dose: 100 mg Documented by: Escitalopram Oxalate (Lexapro -) 10 mg PO AM [facility] Last Admin: 02/11/20 06:21 Dose: 10 mg Documented by: Folic Acid (Folic Acid -) 1 mg PO DAILY [facility] Last Admin: 02/11/20 09:52 Dose: 1 mg Documented by: Furosemide (Lasix Injection -) 40 mg IVPUSH DAILY [facility] Last Admin: 02/11/20 10:15 Dose: 40 mg Documented by: Ceftriaxone Sodium 1 gm/ (Dextrose) 50 mls @ 100 mls/hr IVPB DAILY [facility]; Protocol Last Admin: 02/11/20 09:53 Dose: 100 mls/hr Documented by: Multivitamins/Minerals/Vitamin C (Tab-A-Vit -) 1 tab PO DAILY [facility] Last Admin: 02/11/20 09:52 Dose: 1 tab Documented by: Pantoprazole Sodium (Protonix -) 40 mg PO DAILY [facility] Last Admin: 02/11/20 09:52 Dose: 40 mg Documented by: Risperidone (Risperdal -) 1 mg PO HS [facility] Last Admin: 07/16/20 21:01 Dose: 1 mg Documented by: Senna (Senna -) 1 tab PO HS [facility] Last Admin: 02/10/20 21:01 Dose: 1 tab Documented by: Thiamine HCl (Vitamin B1 -) 100 mg PO DAILY [facility] Last Admin: 02/11/20 09:53 Dose: 100 mg Documented by: - Objective Vital Signs: Vital Signs Temperature 98.4 F 02/11/20 08:10 Pulse Rate 109 H 02/11/20 08:10 Respiratory Rate 22 H 02/11/20 08:10 Blood Pressure 120/68 02/11/20 08:10 O2 Sat by Pulse Oximetry (%) 93 L 02/11/20 08:10 Constitutional: Yes: Calm Eyes: Yes: Conjunctiva Clear HENT: Yes: Atraumatic Neck: Yes: Supple Cardiovascular: Yes: Murmur, S1, S2 Respiratory: Yes: CTA Bilaterally, On Nasal O2 Gastrointestinal: Yes: Soft Genitourinary: Yes: WNL Edema: Yes Edema: LLE: Trace, RLE: Trace Neurological: Yes: Oriented Psychiatric: Yes: Oriented Labs: CBC, BMP 02/11/20 07:20 02/11/20 07:20 INR, PTT INR 1.06 (0.83-1.09) 02/09/20 15:50 Problem List - Problems (1) AISSATOU (acute kidney injury) Code(s): N17.9 - ACUTE KIDNEY FAILURE, UNSPECIFIED (2) Cocaine dependence Code(s): F14.20 - COCAINE DEPENDENCE, UNCOMPLICATED Qualifiers: Substance use status: uncomplicated Qualified Code(s): F14.20 - Cocaine dependence, uncomplicated (3) Nicotine dependence Code(s): F17.200 - NICOTINE DEPENDENCE, UNSPECIFIED, UNCOMPLICATED Qualifiers: Nicotine product type: cigarettes Substance use status: in withdrawal Qualified Code(s): F17.213 - Nicotine dependence, cigarettes, with withdrawal (4) Opioid dependence with withdrawal Code(s): F11.23 - OPIOID DEPENDENCE WITH WITHDRAWAL (5) Essential hypertension Code(s): I10 - ESSENTIAL (PRIMARY) HYPERTENSION (6) Asthma Code(s): J45.909 - UNSPECIFIED ASTHMA, UNCOMPLICATED Qualifiers: Asthma severity: mild Asthma persistence: intermittent Asthma complication type: with status asthmaticus Qualified Code(s): J45.22 - Mild intermittent asthma with status asthmaticus (7) HIV (human immunodeficiency virus infection) Code(s): B20 - HUMAN IMMUNODEFICIENCY VIRUS [HIV] DISEASE Assessment/Plan Current Medications Generic Name Dose Route Start Last Admin Trade Name Freq PRN Reason Stop Dose Admin Albuterol Sulfate 2 puff 02/10/20 11:44 Ventolin Hfa Inhaler - IH Q4H PRN ASTHMA Amlodipine Besylate 10 mg 02/10/20 10:15 02/11/20 09:52 Norvasc - PO 10 mg DAILY [facility] Administration Bictegravir/Emtricitabine/Tenofovir 1 each 02/10/20 11:45 02/11/20 09:53 Biktarvy 50-200-25 Mg Tablet PO 1 each DAILY [facility] Administration Budesonide/Formoterol Fumarate 2 puff 02/10/20 22:00 02/11/20 09:52 Symbicort 80/4.5mcg - IH 2 puff BID [facility] Administration Clonidine 0.1 mg 02/10/20 09:57 Catapres - PO 02/11/20 23:59 Q4H PRN Withdrawal Symptoms Docusate Sodium 100 mg 02/10/20 14:55 Colace - PO BID PRN CONSTIPATION Doxycycline Hyclate 100 mg 02/10/20 18:00 02/11/20 09:52 Vibramycin - PO 100 mg BID@1000,1800 [facility] Administration Escitalopram Oxalate 10 mg 02/11/20 07:00 02/11/20 06:21 Lexapro - PO 10 mg AM [facility] Administration Folic Acid 1 mg 02/10/20 10:00 02/11/20 09:52 Folic Acid - PO 1 mg DAILY [facility] Administration Furosemide 40 mg 02/11/20 10:00 02/11/20 10:15 Lasix Injection - IVPUSH 40 mg DAILY [facility] Administration Ceftriaxone Sodium 1 gm/ 50 mls @ 100 mls/hr 02/09/20 21:45 02/11/20 09:53 Dextrose IVPB 100 mls/hr DAILY [facility] Administration Protocol Multivitamins/Minerals/Vitamin C 1 tab 02/10/20 10:00 02/11/20 09:52 Tab-A-Vit - PO 1 tab DAILY [facility] Administration Pantoprazole Sodium 40 mg 02/10/20 10:15 02/11/20 09:52 Protonix - PO 40 mg DAILY [facility] Administration Risperidone 1 mg 02/10/20 22:00 02/10/20 21:01 Risperdal - PO 1 mg HS [facility] Administration Senna 1 tab 02/10/20 22:00 02/10/20 21:01 Senna - PO 1 tab HS [facility] Administration Thiamine HCl 100 mg 02/10/20 10:00 02/11/20 09:53 Vitamin B1 - PO 100 mg DAILY [facility] Administration Laboratory Tests 02/09/20 16:25 Urine Protein Negative Urine Blood Negative Impression 1. AISSATOU 2. hyperkalemia 3. hiv 4. multi drug abuse 5. asthma 6. htn Plan - cont to monitor renal function - follow echo, ultasound and ct scan - pt did get lasix today - ua neg for blood or protein - cont to monitor lytes
[2020-02-11] MEDS ORDERED: cloNIDine HCL 0.1 MG TABLET PO PRN (13:41)
[2020-02-11] MEDS ORDERED: METHADONE HCL 10 MG TABLET PO ONE (13:41)
--- NOTE | 2020-02-11 14:40 | PN ---
Physical Exam: SUBJECTIVE: Patient seen and examined OBJECTIVE: Vital Signs Temperature 98.4 F 02/11/20 08:10 Pulse Rate 109 H 02/11/20 08:10 Respiratory Rate 22 H 02/11/20 08:10 Blood Pressure 120/68 02/11/20 08:10 O2 Sat by Pulse Oximetry (%) 93 L 02/11/20 08:10 GENERAL: The patient is awake, alert, and fully oriented, on 5L NC HEAD: Normal with no signs of trauma. NECK: full range of motion, supple. LUNGS: Scattered rhonchi bilaterally HEART: Regular rate and rhythm, S1, S2, +holosystolic murmur ABDOMEN: Soft, mild diffuse tenderness, nondistended, normoactive bowel sounds EXTREMITIES: 2+ pulses, warm, well-perfused, +1 pitting edema. SKIN: Warm, dry, normal turgor Laboratory Results - last 24 hr 02/10/20 02/10/20 02/11/20 11:00 15:00 05:15 WBC RBC Hgb Hct MCV MCH MCHC RDW Plt Count MPV Absolute Neuts (auto) Neutrophils % Lymphocytes % Monocytes % Eosinophils % Basophils % Nucleated RBC % ESR 86 H Sodium Potassium Chloride Carbon Dioxide Anion Gap BUN Creatinine Est GFR (CKD-EPI)AfAm Est GFR (CKD-EPI)NonAf Random Glucose Calcium Phosphorus Magnesium Total Bilirubin AST ALT Alkaline Phosphatase C-Reactive Protein B-Natriuretic Peptide Total Protein Albumin Ur Random Creatinine 36.0 U Random Total Protein 11.0 Ur Random Sodium Ur Random Potassium Ur Random Chloride Protein/Creatinin Ratio 0.3 Stool Occult Blood Negative 02/11/20 02/11/20 02/11/20 05:15 05:15 07:20 WBC RBC Hgb Hct MCV MCH MCHC RDW Plt Count MPV Absolute Neuts (auto) Neutrophils % Lymphocytes % Monocytes % Eosinophils % Basophils % Nucleated RBC % ESR Sodium 138 Potassium 4.5 Chloride 108 H Carbon Dioxide 21 Anion Gap 8 BUN 22.2 H Creatinine 1.5 H Est GFR (CKD-EPI)AfAm 44.05 Est GFR (CKD-EPI)NonAf 38.01 Random Glucose 78 Calcium 8.4 L Phosphorus 4.9 Magnesium 2.1 Total Bilirubin 0.8 AST 49 H ALT 20 Alkaline Phosphatase 148 H C-Reactive Protein 0.4 H B-Natriuretic Peptide 240.1 H Total Protein 8.6 H Albumin 2.0 L Ur Random Creatinine 38.0 U Random Total Protein Ur Random Sodium 33 L Ur Random Potassium 31.0 Ur Random Chloride 28 L Protein/Creatinin Ratio Stool Occult Blood 02/11/20 07:20 WBC 5.4 RBC 3.21 L Hgb 8.2 L Hct 25.1 L MCV 78.2 L MCH 25.6 L MCHC 32.8 RDW 17.4 H Plt Count 201 MPV 8.2 Absolute Neuts (auto) 3.2 Neutrophils % 59.4 Lymphocytes % 24.3 Monocytes % 13.0 H Eosinophils % 2.3 Basophils % 1.0 Nucleated RBC % 0 ESR Sodium Potassium Chloride Carbon Dioxide Anion Gap BUN Creatinine Est GFR (CKD-EPI)AfAm Est GFR (CKD-EPI)NonAf Random Glucose Calcium Phosphorus Magnesium Total Bilirubin AST ALT Alkaline Phosphatase C-Reactive Protein B-Natriuretic Peptide Total Protein Albumin Ur Random Creatinine U Random Total Protein Ur Random Sodium Ur Random Potassium Ur Random Chloride Protein/Creatinin Ratio Stool Occult Blood Active Medications Generic Name Dose Route Start Last Admin Trade Name Freq PRN Reason Stop Dose Admin Albuterol Sulfate 2 puff 02/10/20 11:44 Ventolin Hfa Inhaler - IH Q4H PRN ASTHMA Amlodipine Besylate 10 mg 02/10/20 10:15 02/11/20 09:52 Norvasc - PO 10 mg DAILY NATHALY Administration Bictegravir/Emtricitabine/Tenofovir 1 each 02/10/20 11:45 02/11/20 09:53 Biktarvy 50-200-25 Mg Tablet PO 1 each DAILY NATHALY Administration Budesonide/Formoterol Fumarate 2 puff 02/10/20 22:00 02/11/20 09:52 Symbicort 80/4.5mcg - IH 2 puff BID NATHALY Administration Clonidine 0.1 mg 02/10/20 09:57 Catapres - PO 02/11/20 23:59 Q4H PRN Withdrawal Symptoms Clonidine 0.1 mg 02/11/20 13:41 Catapres - PO 02/12/20 23:59 Q4H PRN Withdrawal Symptoms Docusate Sodium 100 mg 02/10/20 14:55 Colace - PO BID PRN CONSTIPATION Doxycycline Hyclate 100 mg 02/10/20 18:00 02/11/20 09:52 Vibramycin - PO 100 mg BID@1000,1800 NATHALY Administration Escitalopram Oxalate 10 mg 02/11/20 07:00 02/11/20 06:21 Lexapro - PO 10 mg AM NATHALY Administration Folic Acid 1 mg 02/10/20 10:00 02/11/20 09:52 Folic Acid - PO 1 mg DAILY NATHALY Administration Furosemide 40 mg 02/11/20 10:00 02/11/20 10:15 Lasix Injection - IVPUSH 40 mg DAILY NATHALY Administration Ceftriaxone Sodium 1 gm/ 50 mls @ 100 mls/hr 02/09/20 21:45 02/11/20 09:53 Dextrose IVPB 100 mls/hr DAILY NATHALY Administration Protocol Methadone HCl 15 mg 02/12/20 10:00 Dolophine - PO 02/12/20 10:01 ONCE ONE Methadone HCl 10 mg 02/13/20 10:00 Dolophine - PO 02/13/20 10:01 ONCE ONE Methadone HCl 5 mg 02/14/20 06:00 Dolophine - PO 02/14/20 06:01 ONCE ONE Multivitamins/Minerals/Vitamin C 1 tab 02/10/20 10:00 02/11/20 09:52 Tab-A-Vit - PO 1 tab DAILY NATHALY Administration Pantoprazole Sodium 40 mg 02/10/20 10:15 02/11/20 09:52 Protonix - PO 40 mg DAILY NATHALY Administration Risperidone 1 mg 02/10/20 22:00 02/10/20 21:01 Risperdal - PO 1 mg HS NATHALY Administration Senna 1 tab 02/10/20 22:00 02/10/20 21:01 Senna - PO 1 tab HS NATHALY Administration Thiamine HCl 100 mg 02/10/20 10:00 02/11/20 09:53 Vitamin B1 - PO 100 mg DAILY NATHALY Administration ASSESSMENT/PLAN: Patient is a 59 year old female with a PMH of PSA, asthma, HTN, HIV (on HAART) presented from [facility] for evauation of a murmur and LE edema 3 days. In the ED she had nausea/vomiting, diarrhea x 3-4, chills, abdominal and back pain. #Holosystolic Murmur - unkown time of onset - CXR was significant for Prominent heart - EKG Sinus tachycardia with left ventricular hypertrophy - Echo pending - Cardiology (Dr. Alfred) following, recommendations appreciated #AISSATOU on CKD - Hyperkalemia, resolved - Patient has multiple risk factors for CKD (HTN, HIV, Heroin use-amyloidosis) - Will hold Benazepril - f/u Renal U/S - ua neg for blood or protein - cont to monitor lytes - cont to monitor renal function - Avoid nephrotoxic medications - Nephrology (Dr. Shetty) is following. Recommendations appreciated #Acute hypoxic respiratory failure -may be 2/2 Asthma/COPD vs fluid overload, hypoventilation from PSA, libirium,methadone, ?aspiration -B/L LE US negative for DVT -Unable to order Chest CTA in light of AISSATOU -H/H dropping from baseline, unclear source, will hold off on chemical AC -Stool occult negative -will continue Ceftriaxone and Doxycycline -Supplemental oxygen as needed to keep SPO2>92% -Chest CT done -IV Lasix given again today -symbicort bid and ventolin ih prn -Pulm (Dr. Huizar) consulted. Recommendations appreciated. #Asthma - Symbicort bid and Ventolin IH prn #UTI - 2+ leukocyte esterase with 60 Urine WBC and 382 Urine Bacteria - Patient is asymptomatic, however, she is Immunocompromised(HIV) - continue Rocephin 1gm daily - ID (Dr. Darby) following, recommendations appreciated. #Polysubstance abuse - Heroin, Crack/cocaine, EtoH, tabacco - CIWA score 12 - librium protocol is in place - Methadone started for opiate withdrawal sx, COWS 12 - Will continue to monitor for Withdrawal symptoms - Fall, aspiration, and seizure precautions are in place - daily thiamine, folic acid and vitamin supplements. - will replete electrolytes as needed #Anemia - unknown etiology, possibly multifactorial - stool occult negative - Hypoproliferating reticulocyte index of 0.66 - Iron studies show combined iron deficiency and inflammatory etiology. #Transaminitis - trending down, likely 2/2 alcohol use - RUQ US pending #HTN - Holding Benazepril due to decreased kidney functions - will continue amlodipine - will monitor v/s #HIV/AIDS - On home medications - CD4/CD8/CD3 ratio ordered - Nystatin given for oral thrush - ID (Dr. Darby) following, recommendations appreciated. - Immunology consulted #Hx of psych d/o - On home medication of risperidone, lexapro #FEN - Not on any standing fluids - Monitor electrolytes - Sodium controlled Diet #DVT - SCDs, will hold chemical AC in light of anemia #Disposition - full code - Continue to monitor patient on tele Visit type - Emergency Visit Emergency Visit: Yes ED Registration Date: 02/09/20 Care time: The patient presented to the Emergency Department on the above date and was hospitalized for further evaluation of their emergent condition. - New Patient This patient is new to me today: No - Critical Care Critical Care patient: No ATTENDING PHYSICIAN STATEMENT I saw and evaluated the patient. I reviewed the resident's note and discussed the case with the resident. I agree with the resident's findings and plan as documented. SUBJECTIVE: OBJECTIVE: ASSESSMENT AND PLAN:
--- NOTE | 2020-02-11 14:43 | PN ---
Progress Note, Physician History of Present Illness: AWAKE, LETHARGIC BREATHING NON LABORED ON HIGH FLOW O2 AFEBRILE BLOOD, URINE C/S NO GROWTH CD4 PENDING - Current Medication List Current Medications: Active Medications Albuterol Sulfate (Ventolin Hfa Inhaler -) 2 puff IH Q4H PRN PRN Reason: ASTHMA Amlodipine Besylate (Norvasc -) 10 mg PO DAILY [facility] Last Admin: 02/11/20 09:52 Dose: 10 mg Documented by: Bictegravir/Emtricitabine/Tenofovir (Biktarvy 50-200-25 Mg Tablet) 1 each PO DAILY [facility] Last Admin: 02/11/20 09:53 Dose: 1 each Documented by: Budesonide/Formoterol Fumarate (Symbicort 80/4.5mcg -) 2 puff IH BID [facility] Last Admin: 02/11/20 09:52 Dose: 2 puff Documented by: Clonidine (Catapres -) 0.1 mg PO Q4H PRN PRN Reason: Withdrawal Symptoms Stop: 02/11/20 23:59 Clonidine (Catapres -) 0.1 mg PO Q4H PRN PRN Reason: Withdrawal Symptoms Stop: 02/12/20 23:59 Docusate Sodium (Colace -) 100 mg PO BID PRN PRN Reason: CONSTIPATION Doxycycline Hyclate (Vibramycin -) 100 mg PO BID@1000,1800 [facility] Last Admin: 02/11/20 09:52 Dose: 100 mg Documented by: Escitalopram Oxalate (Lexapro -) 10 mg PO AM [facility] Last Admin: 02/11/20 06:21 Dose: 10 mg Documented by: Folic Acid (Folic Acid -) 1 mg PO DAILY [facility] Last Admin: 02/11/20 09:52 Dose: 1 mg Documented by: Furosemide (Lasix Injection -) 40 mg IVPUSH DAILY [facility] Last Admin: 02/11/20 10:15 Dose: 40 mg Documented by: Ceftriaxone Sodium 1 gm/ (Dextrose) 50 mls @ 100 mls/hr IVPB DAILY [facility]; Protocol Last Admin: 02/11/20 09:53 Dose: 100 mls/hr Documented by: Methadone HCl (Dolophine -) 15 mg PO ONCE ONE Stop: 02/12/20 10:01 Methadone HCl (Dolophine -) 10 mg PO ONCE ONE Stop: 07/19/20 10:01 Methadone HCl (Dolophine -) 5 mg PO ONCE ONE Stop: 02/14/20 06:01 Multivitamins/Minerals/Vitamin C (Tab-A-Vit -) 1 tab PO DAILY [facility] Last Admin: 02/11/20 09:52 Dose: 1 tab Documented by: Pantoprazole Sodium (Protonix -) 40 mg PO DAILY [facility] Last Admin: 02/11/20 09:52 Dose: 40 mg Documented by: Risperidone (Risperdal -) 1 mg PO [facility] Last Admin: 02/10/20 21:01 Dose: 1 mg Documented by: Senna (Senna -) 1 tab PO [facility] Last Admin: 02/10/20 21:01 Dose: 1 tab Documented by: Thiamine HCl (Vitamin B1 -) 100 mg PO DAILY [facility] Last Admin: 02/11/20 09:53 Dose: 100 mg Documented by: - Objective Vital Signs: Vital Signs Temperature 98.4 F 02/11/20 08:10 Pulse Rate 109 H 02/11/20 08:10 Respiratory Rate 22 H 02/11/20 08:10 Blood Pressure 120/68 02/11/20 08:10 O2 Sat by Pulse Oximetry (%) 93 L 02/11/20 08:10 Constitutional: Yes: Cachectic Cardiovascular: Yes: Regular Rate and Rhythm, S1, S2 Respiratory: Yes: Diminished Gastrointestinal: Yes: Normal Bowel Sounds, Soft. No: Tenderness Labs: CBC, BMP 02/11/20 07:20 02/11/20 07:20 INR, PTT INR 1.06 (0.83-1.09) 02/09/20 15:50 Assessment/Plan HEART MURMUR EXACERBATION COPD HIV+ ? AIDS POLYSUBTANCE ABUSE ?UTI ? PNEUMONIA AWAIT CD4 CONTINUE BIKTARVY CONTINUE CEFTRIAXONE
[2020-02-11] MEDS ORDERED: ACETAMINOPHEN 325 MG TABLET (FP) PO PRN (14:56)
--- NOTE | 2020-02-11 14:57 | ECHO ---
Version: 1 Name: BILL PRETTY Exam: Adult Echocardiogram Study Date: 02/11/2020, 10:28 AM Age: 59 Years MMode/2D Measurements & Calculations IVSd: 1.15 cm LVIDs: 2.9 cm LVIDd: 4.6 cm LVPWd: 1.13 cm LAV (MOD-bp): 81.0 ml ACS: 1.61 cm Ao root diam: 3.0 cm LVOT diam: 2.00 cm LA dimension: 3.7 cm Doppler Measurements & Calculations MV E max jim: 81.9 cm/sec Med E/e': 22.1 MV A max jim: 118.5 cm/sec Med Peak E' Jim: 3.7 cm/sec MV E/A: 0.69 Lat E/e': 12.7 Lat Peak E' Jim: 6.4 cm/sec Ao max P.4 mmHg REAGAN(I,D): 2.9 cm Ao mean P.7 mmHg LV V1 mean: 98.3 cm/sec Ao V2 max: 195.7 cm/sec LV V1 mean P.7 mmHg AI P1/2t: 264.6 msec TR max jim: 221.3 cm/sec TR max P.2 mmHg Left Ventricle Left ventricular systolic function is normal. Ejection Fraction = 55-60%. Right Ventricle The right ventricle is normal in size and function. Atria Normal left and right atrial size and function. Mitral Valve The mitral valve is normal in structure and function. There is no mitral valve stenosis. There is mi ld mitral regurgitation. Tricuspid Valve The tricuspid valve is normal in structure and function. There is mild tricuspid regurgitation. Aortic Valve There is mild aortic sclerosis.;. No hemodynamically significant valvular aortic stenosis. Severe ao rtic regurgitation. Multiple measurements of aortic regurgitation pressure half time < 250ms. Pulmonic Valve The pulmonic valve is not well seen, but is grossly normal. There is no pulmonic valvular stenosis. Great Vessels The aortic root is normal size. Pericardium/Pleura There is no pericardial effusion. Tech Comments Patient unable to lay still. Agitated. Summary Statements Left ventricular systolic function is normal. Ejection Fraction = 55-60%. There is mild mitral regurgitation. There is mild tricuspid regurgitation. There is mild aortic sclerosis.; Severe aortic regurgitation. Multiple measurements of aortic regurgitation pressure half time < 250ms. MD Brown *Audra 02/11/2020, 2:56 PM Ordering Physician: Chris Herman Referring Physician: CHRIS CASTELLON Performed By: Marta Ulloa
[2020-02-11 18:06] VITALS: BP 137/59; PULSE 106; TEMP 97.9
[2020-02-12] MEDS ORDERED: LORazepam 0.5 MG TABLET PO PRN
[2020-02-12] MEDS ORDERED: LORazepam 0.5 MG TABLET PO SCH (05:00)
[2020-02-12] MEDS ORDERED: chlordiazePOXIDE 5 MG CAPSULE PO SCH (05:00)
--- NOTE | 2020-02-12 08:31 | DS ---
Physical Exam: SUBJECTIVE: Condition 10 was called in the afternoon as patient was attempting to leave the building. Patient seen and examined. Patient wanted to sign out AMA because she reported her grandson is in trouble.Risks of leaving the hospital including but not limited to respiratory failure and explained to patient. She understood but still wanted to leave. OBJECTIVE: LABS Laboratory Results - last 24 hr 02/09/20 02/10/20 02/11/20 16:25 11:00 07:20 WBC RBC Hgb Hct MCV MCH MCHC RDW Plt Count MPV Absolute Neuts (auto) Neutrophils % Lymphocytes % Monocytes % Eosinophils % Basophils % Nucleated RBC % Sodium 138 Potassium 4.5 Chloride 108 H Carbon Dioxide 21 Anion Gap 8 BUN 22.2 H Creatinine 1.5 H Est GFR (CKD-EPI)AfAm 44.05 Est GFR (CKD-EPI)NonAf 38.01 Random Glucose 78 Calcium 8.4 L Phosphorus 4.9 Magnesium 2.1 Total Bilirubin 0.8 AST 49 H ALT 20 Alkaline Phosphatase 148 H C-Reactive Protein 0.4 H B-Natriuretic Peptide 240.1 H Total Protein 8.6 H Albumin 2.0 L Stool Occult Blood Negative COVID-19 ([facility]) Not detected 02/11/20 07:20 WBC 5.4 RBC 3.21 L Hgb 8.2 L Hct 25.1 L MCV 78.2 L MCH 25.6 L MCHC 32.8 RDW 17.4 H Plt Count 201 MPV 8.2 Absolute Neuts (auto) 3.2 Neutrophils % 59.4 Lymphocytes % 24.3 Monocytes % 13.0 H Eosinophils % 2.3 Basophils % 1.0 Nucleated RBC % 0 Sodium Potassium Chloride Carbon Dioxide Anion Gap BUN Creatinine Est GFR (CKD-EPI)AfAm Est GFR (CKD-EPI)NonAf Random Glucose Calcium Phosphorus Magnesium Total Bilirubin AST ALT Alkaline Phosphatase C-Reactive Protein B-Natriuretic Peptide Total Protein Albumin Stool Occult Blood COVID-19 ([facility]) HOSPITAL COURSE: Date of Admission:02/09/20 Date of Discharge: 02/12/20 Patient is a 59 year old female with a PMH of PSA, asthma, HTN, HIV (on HAART) presented from [facility] for evauation of a murmur and LE edema 3 days. In the ED she had nausea/vomiting, diarrhea x 3-4, chills, abdominal and back pain. #Holosystolic Murmur - unkown time of onset - CXR was significant for Prominent heart - EKG Sinus tachycardia with left ventricular hypertrophy - Echo revealing severe - Cardiology (Dr. Alfred) following, recommendations appreciated #AISSATOU on CKD - Hyperkalemia, resolved - Patient has multiple risk factors for CKD (HTN, HIV, Heroin use-amyloidosis) - Will hold Benazepril - f/u Renal U/S - ua neg for blood or protein - cont to monitor lytes - cont to monitor renal function - Avoid nephrotoxic medications - Nephrology (Dr. Shetty) is following. Recommendations appreciated #Acute hypoxic respiratory failure -may be 2/2 Asthma/COPD vs fluid overload, hypoventilation from PSA, libirium,methadone, ?aspiration -B/L LE US negative for DVT -Unable to order Chest CTA in light of AISSATOU -H/H dropping from baseline, unclear source, will hold off on chemical AC -Stool occult negative -will continue Ceftriaxone and Doxycycline -Supplemental oxygen as needed to keep SPO2>92% -Chest CT done -IV Lasix given again today -symbicort bid and ventolin ih prn -Pulm (Dr. Huizar) consulted. Recommendations appreciated. #Asthma - Symbicort bid and Ventolin IH prn #UTI - 2+ leukocyte esterase with 60 Urine WBC and 382 Urine Bacteria - Patient is asymptomatic, however, she is Immunocompromised(HIV) - continue Rocephin 1gm daily - ID (Dr. Darby) following, recommendations appreciated. #Polysubstance abuse - Heroin, Crack/cocaine, EtoH, tabacco - CIWA score 12 - librium protocol is in place - Methadone started for opiate withdrawal sx, COWS 12 - Will continue to monitor for Withdrawal symptoms - Fall, aspiration, and seizure precautions are in place - daily thiamine, folic acid and vitamin supplements. - will replete electrolytes as needed #Anemia - unknown etiology, possibly multifactorial - stool occult negative - Hypoproliferating reticulocyte index of 0.66 - Iron studies show combined iron deficiency and inflammatory etiology. #Transaminitis - trending down, likely 2/2 alcohol use - RUQ US pending #HTN - Holding Benazepril due to decreased kidney functions - will continue amlodipine - will monitor v/s #HIV/AIDS - On home medications - CD4/CD8/CD3 ratio ordered - Nystatin given for oral thrush - ID (Dr. Darby) following, recommendations appreciated. - Immunology consulted Patient signed out against medical advise. Minutes to complete discharge: 40 Discharge Summary Problems reviewed: Yes Reason For Visit: ACUTE KIDNEY INJ,ALCOHOL DEP,OPIOID DEP, Current Active Problems Alcohol dependence with uncomplicated withdrawal (Acute) Cocaine dependence (Acute) Nicotine dependence (Acute) Opioid dependence with withdrawal (Acute) Essential hypertension (Chronic) Condition: Fair - Instructions Disposition: AGAINST MEDICAL ADVICE - Home Medications Comprehensive Discharge Medication List: Ambulatory Orders Albuterol Sulfate Inhaler - [Ventolin HFA Inhaler -] 2 inh PO Q4H PRN 08/05/18 Albuterol Sulfate Inhaler - [Ventolin HFA Inhaler -] 2 puff IH Q4H PRN #1 inhaler 08/05/18 Amlodipine Besylate/Benazepril [Lotrel 10-20 mg Capsule] 1 cap PO DAILY 08/05/18 Budesonide/Formeterol Fumarate [SYMBICORT 160/4.5mcg -] 2 puff IH BID #1 inhaler 08/05/18 Amlodipine Besylate/Benazepril [Lotrel 10-20 mg Capsule] 1 cap PO DAILY 02/10/20 Bictegrav/Emtricit/Tenofov Ala [Biktarvy 50-200-25 mg Tablet] 1 tab PO DAILY 02/10/20 Bictegrav/Emtricit/Tenofov Ala [Biktarvy 50-200-25 mg Tablet] 1 tablet PO DAILY 02/10/20 Escitalopram Oxalate [Lexapro -] 10 mg PO AM 02/10/20 Fluticasone/Salmeterol [Advair 250-50 Diskus] 1 inh PO BID 02/10/20 Risperidone 1 mg PO HS 02/10/20 Sulfamethoxazole/Trimethoprim [Bactrim DS -] 1 tablet PO DAILY 02/10/20 Zolpidem Tartrate [Ambien] 10 mg PO HS 02/10/20 This patient is new to me today: No Emergency Visit: Yes ED Registration Date: 02/09/20 Care time: The patient presented to the Emergency Department on the above date and was hospitalized for further evaluation of their emergent condition. Critical Care patient: No - Discharge Referral Referred to [facility] Med [facility].C[facility] No ATTENDING PHYSICIAN STATEMENT I saw and evaluated the patient. I reviewed the resident's note and discussed the case with the resident. I agree with the resident's findings and plan as documented. SUBJECTIVE: OBJECTIVE: ASSESSMENT AND PLAN:
[2020-02-12] MEDS ORDERED: METHADONE HCL 10 MG TABLET (FOR DETOX USE ONLY) PO ONE (10:00)
[2020-02-12] MEDS ORDERED: METHADONE HCL 5 MG TABLET PO ONE (10:00)
[2020-02-13] MEDS ORDERED: chlordiazePOXIDE HCL 10 MG CAPSULE PO PRN
[2020-02-13] MEDS ORDERED: LORazepam 0.5 MG TABLET PO ONE (05:00)
[2020-02-13] MEDS ORDERED: chlordiazePOXIDE HCL 10 MG CAPSULE PO SCH (05:00)
[2020-02-13] MEDS ORDERED: METHADONE HCL 5 MG TABLET (FOR DETOX USE ONLY) PO ONE (06:00)
[2020-02-13] MEDS ORDERED: METHADONE HCL 10 MG TABLET PO ONE (10:00)
[2020-02-14] MEDS ORDERED: chlordiazePOXIDE HCL 10 MG CAPSULE PO ONE (05:00)
[2020-02-14] MEDS ORDERED: METHADONE HCL 5 MG TABLET PO ONE (06:00)
== END 2020-02-11 18:30 | disposition left against medical advice (07) | DRG 469 ==
LOC: JER 14:39 → JERBED 17:52 → J6S 21:04 → J4W 23:09
PROVIDERS: ADMIT Internal Medicine
PROC: HZ2ZZZZ Detoxification Services for Substance Abuse Treatment (ICD-10-PCS; principal; 2020-02-10)
DX: N17.9 Acute kidney failure, unspecified (principal); Z21 Asymptomatic human immunodeficiency virus [HIV] infection status; R01.1 Cardiac murmur, unspecified; F10.239 Alcohol dependence with withdrawal, unspecified; F11.23 Opioid dependence with withdrawal; E87.5 Hyperkalemia; F14.20 Cocaine dependence, uncomplicated; E46 Unspecified protein-calorie malnutrition; Z68.25 Body mass index [BMI] 25.0-25.9, adult; J44.1 Chronic obstructive pulmonary disease with (acute) exacerbation; F17.210 Nicotine dependence, cigarettes, uncomplicated; E87.2 Acidosis; B37.0 Candidal stomatitis; E88.09 Other disorders of plasma-protein metabolism, not elsewhere classified; R19.7 Diarrhea, unspecified; J98.11 Atelectasis; R74.0 Nonspecific elevation of levels of transaminase and lactic acid dehydrogenase [LDH]; N39.0 Urinary tract infection, site not specified; D63.1 Anemia in chronic kidney disease; I12.9 Hypertensive chronic kidney disease with stage 1 through stage 4 chronic kidney disease, or unspecified chronic kidney disease; N18.9 Chronic kidney disease, unspecified; J45.909 Unspecified asthma, uncomplicated; J96.01 Acute respiratory failure with hypoxia
CPT/HCPCS: 36415; 36600; 71045-TC-FY; 71046-TC-FY; 71250-TC; 76700-TC; 76775-TC; 80048; 80053; 81003; 82140; 82272; 82436; 82550; 82553; 82565; 82728; 82803; 83540; 83550; 83605; 83735; 83880; 84100; 84133; 84156; 84300; 84484; 85025; 85044; 85610; 85651; 85730; 86140; 86359; 86360; 86850; 86900; 86901; 87040; 87086; 93005; 93010; 93306-TC; 93970-TC; 99285-25; J1644; J2794; U0003